=== PATIENT | female | born 1950 | race Caucasian/White ===

== ENCOUNTER → 2018-05-25 10:45 | Outpatient (CLI) | payer OTHER, SELFPAY ==
--- NOTE | 2018-05-25 | DI.MG.S_ITS ---
BILATERAL DIGITAL SCREENING MAMMOGRAM 3D/2D WITH CAD: 05/25/2018 CLINICAL: Routine screening. Family history of breast cancer. Comparison is made to exams dated: 03/11/2017 mammogram, 02/25/2017 mammogram, and 02/16/2017 mammogram - [facility]. The tissue of both breasts is heterogeneously dense. This may lower the sensitivity of mammography. Current study was also evaluated with a Computer Aided Detection (CAD) system. No significant masses, calcifications, or other findings are seen in either breast. There has been no significant interval change. IMPRESSION: NEGATIVE There is no mammographic evidence of malignancy. A 1 year screening mammogram is recommended. This exam was interpreted at Station ID: [id number]. NOTE: For mammograms, a report in lay terms will be sent to the patient. Approximately 15% of breast malignancies will not be visualized mammographically. In the management of a palpable breast mass, a negative mammogram must not discourage biopsy of a clinically suspicious lesion. Electronically Signed By: Devon ponce/froilan:05/25/2018 19:54:26 letter sent: Normal Exam ACR BI-RADS Category 1: Negative 3341F
== END ==
PROVIDERS: PCP Nurse Practitioner Family; Visit Provider Nurse Practitioner Family
DX: Z12.31 Encounter for screening mammogram for malignant neoplasm of breast (principal); Z80.3 Family history of malignant neoplasm of breast
CPT/HCPCS: 77063; 77067

== ENCOUNTER → 2019-10-05 14:03 | Outpatient (CLI) | payer MEDICARE, OTHER, SELFPAY ==
--- NOTE | 2019-10-05 | DI.MG.S_ITS ---
BILATERAL DIGITAL SCREENING MAMMOGRAM 3D/2D WITH CAD: 10/05/2019 CLINICAL: Routine screening. Family history of breast cancer. Comparison is made to exams dated: 05/25/2018 mammogram, 03/11/2017 mammogram, 02/25/2017 mammogram, 02/16/2017 mammogram, and 01/27/2016 mammogram - [facility]. The tissue of both breasts is heterogeneously dense. This may lower the sensitivity of mammography. Current study was also evaluated with a Computer Aided Detection (CAD) system. No significant masses, calcifications, or other findings are seen in either breast. There has been no significant interval change. IMPRESSION: NEGATIVE There is no mammographic evidence of malignancy. A 1 year screening mammogram is recommended. This exam was interpreted at Station ID: [id number]. NOTE: For mammograms, a report in lay terms will be sent to the patient. Approximately 15% of breast malignancies will not be visualized mammographically. In the management of a palpable breast mass, a negative mammogram must not discourage biopsy of a clinically suspicious lesion. Electronically Signed By: Selam leiva/froilan:10/06/2019 12:46:16 letter sent: Normal Exam ACR BI-RADS Category 1: Negative 3341F
== END ==
PROVIDERS: PCP Nurse Practitioner Family; Visit Provider Nurse Practitioner Family
DX: Z12.31 Encounter for screening mammogram for malignant neoplasm of breast (principal); Z80.3 Family history of malignant neoplasm of breast; M85.852 Other specified disorders of bone density and structure, left thigh; Z78.0 Asymptomatic menopausal state; E07.9 Disorder of thyroid, unspecified; Z82.62 Family history of osteoporosis
CPT/HCPCS: 77063; 77067; 77080

== ENCOUNTER → 2020-03-25 07:32 | Outpatient (CLI) | payer MEDICARE, OTHER, SELFPAY ==
[2020-03-25 08:22] LABS: Alanine Aminotransferase 28 IU/L (<35); Albumin 4.3 g/dL (3.5-5.0); Albumin Globulin Ratio 1.6 (1.0-2.8); Alkaline Phosphatase 57 U/L (38-126); Aspartate Aminotransferase 32 IU/L (14-36); BUN Creatinine Ratio 18.9 (6-22); Bilirubin Total 0.7 mg/dL (0.2-1.3); Blood Urea Nitrogen 20 mg/dL (7-17); Calcium 9.3 mg/dL (8.4-10.2); Carbon Dioxide 26 mmol/L (22-32); Chloride 107 mmol/L (98-107); Cholesterol 199 mg/dL (140-199); Estimated Glomerular Filt Rate 51.7 mL/min (>60); Globulin 2.7 g/dL (1.7-4.1); Glucose 103 mg/dL (80-110); HDL Cholesterol 81 mg/dL (40-60); HEMOLYSIS < 15 (0-50); LDL Cholesterol Calculated 92 mg/dL (<100); Potassium 4.3 mmol/L (3.4-5.1); Sodium 138 mmol/L (137-145); Triglycerides 129 mg/dL (35-150)
[2020-03-25 08:37] LABS: Vitamin D 25 Hydroxy (D3) 23.2 ng/mL (30.0-100.0)
== END ==
PROVIDERS: PCP Nurse Practitioner Family; Referring Provider Nurse Practitioner Family; Visit Provider Nurse Practitioner Family
DX: E03.9 Hypothyroidism, unspecified (principal); E55.9 Vitamin D deficiency, unspecified; N28.9 Disorder of kidney and ureter, unspecified; E78.5 Hyperlipidemia, unspecified
CPT/HCPCS: 36415; 80053; 80061; 82306; 84443

== ENCOUNTER → 2020-07-16 07:06 | Outpatient (CLI) | payer MEDICARE, OTHER, SELFPAY ==
[2020-07-16 08:28] LABS: Add Manual Diff / Slide Review NO; Basophils Absolute Auto 0 /uL (0-100); Basophils Percent Auto 0.7 % (0-2); Eosinophils Absolute Auto 300 /uL (0-450); Eosinophils Percent Auto 4.9 % (2-4); Lymphocytes Absolute Auto 1600 /uL (1100-4500); Lymphocytes Percent Auto 30.3 % (25-40); Mean Corpuscular HGB Conc 32.7 % (30-36); Mean Corpuscular Hemoglobin 31.6 PG (26-34); Mean Corpuscular Volume 96.8 fL (80-100); Monocytes Absolute Auto 600 /uL (0-900); Monocytes Percent Auto 11.8 % (3-14); Neutrophils Absolute Auto 2700 /uL (1500-7000); Neutrophils Percent Auto 52.3 % (50-75); Platelet Count 250 X10^3/uL (150-400); Red Blood Cell Count 4.75 X10^6/uL (4.0-5.2); Red Cell Distribution Width 12.8 % (11.6-14.8); White Blood Cell Count 5.2 X10^3/uL (4.5-11.0)
[2020-07-16 08:56] LABS: BUN Creatinine Ratio 21.2 (6-22); Blood Urea Nitrogen 24 mg/dL (7-17); Calcium 9.3 mg/dL (8.4-10.2); Carbon Dioxide 27 mmol/L (22-32); Chloride 107 mmol/L (98-107); Estimated Glomerular Filt Rate 47.9 mL/min (>60); Glucose 93 mg/dL (80-110); HEMOLYSIS < 15 (0-50); Potassium 4.7 mmol/L (3.4-5.1); Sodium 141 mmol/L (137-145)
[2020-07-16 09:15] LABS: TSH w/ Reflex to FT4 1.49 uIU/mL (0.47-4.68)
[2020-07-16 09:31] LABS: Appearance Urine UA SL CLOUDY; Bilirubin Urine UA NEGATIVE (NEGATIVE); Color Urine UA YELLOW; Glucose Urine UA NEGATIVE (Negative); Ketones Urine UA NEGATIVE (NEGATIVE); Leukocyte Esterase Urine UA TRACE (NEGATIVE); Nitrite Urine UA POSITIVE (Negative); Occult Blood Urine UA 3+ (Negative); Protein Urine UA NEGATIVE (Negative); Specific Gravity Urine UA 1.025 (1.000-1.035); Urobilinogen Urine UA 0.2 E.U./dL (0.2)
[2020-07-16 09:36] LABS: Bacteria Urine Many (>30); Culture Indicated Urine Cult Not Indicated; RBC Urine 10-30/HPF (0-5/HPF); Squamous Epithelial Cell Urine 10-30 /HPF (0-5/HPF); WBC Urine 5-10/HPF (0-5/HPF)
[2020-07-16 10:44] LABS: Creatinine Urine Random 227.5 mg/dL
[2020-07-16 10:50] LABS: Microalbumin Urine Random < 0.6 mg/dL (0-1.6)
== END ==
PROVIDERS: PCP Registered Nurse Diabetes Educator; Referring Provider Registered Nurse Diabetes Educator; Visit Provider Registered Nurse Diabetes Educator
DX: E03.9 Hypothyroidism, unspecified (principal); N28.9 Disorder of kidney and ureter, unspecified
CPT/HCPCS: 36415; 80048; 81001; 82043; 82570; 84443; 85025

== ENCOUNTER → 2020-07-17 07:28 | Outpatient (CLI) | payer MEDICARE, OTHER, SELFPAY ==
[2020-07-17 09:46] LABS: Appearance Urine UA SL CLOUDY; Color Urine UA Yellow; Glucose Urine UA NEGATIVE (Negative); Ketones Urine UA NEGATIVE (NEGATIVE); Protein Urine UA Negative (Negative); Specific Gravity Urine UA 1.025 (1.000-1.035)
[2020-07-17 09:47] LABS: Bilirubin Urine UA Negative (NEGATIVE); Leukocyte Esterase Urine UA NEGATIVE (NEGATIVE); Nitrite Urine UA POSITIVE (Negative); Occult Blood Urine UA 2+ (Negative); Urobilinogen Urine UA 0.2 E.U./dL (0.2)
[2020-07-17 09:49] LABS: Bacteria Urine Many (>30); Culture Indicated Urine Specimen Cultured; RBC Urine 1-5/HPF (0-5/HPF); Squamous Epithelial Cell Urine 1-5 /HPF (0-5/HPF); WBC Urine 1-5/HPF (0-5/HPF)
== END ==
PROVIDERS: PCP Registered Nurse Diabetes Educator; Referring Provider Registered Nurse Diabetes Educator; Visit Provider Registered Nurse Diabetes Educator
DX: R82.998 Other abnormal findings in urine (principal)
CPT/HCPCS: 81001; 87077; 87086; 87186

== ENCOUNTER → 2020-08-01 07:05 | Outpatient (CLI) | payer MEDICARE, OTHER, SELFPAY ==
[2020-08-01 07:48] LABS: Bacteria Urine None Seen; RBC Urine None Seen (0-5/HPF)
[2020-08-01 08:27] LABS: Appearance Urine UA CLEAR; Bilirubin Urine UA NEGATIVE (NEGATIVE); Color Urine UA YELLOW; Glucose Urine UA TRACE g/dL (Negative); Ketones Urine UA NEGATIVE (NEGATIVE); Leukocyte Esterase Urine UA TRACE (NEGATIVE); Nitrite Urine UA NEGATIVE (Negative); Occult Blood Urine UA TRACE-LYSED (Negative); Protein Urine UA NEGATIVE (Negative); Specific Gravity Urine UA 1.025 (1.000-1.035); Urobilinogen Urine UA 0.2 E.U./dL (0.2)
[2020-08-01 08:38] LABS: Amorphous Sediment Urine 2+; Culture Indicated Urine Cult Not Indicated; Squamous Epithelial Cell Urine 5-10 /HPF (0-5/HPF); WBC Urine 5-10/HPF (0-5/HPF)
== END ==
PROVIDERS: PCP Registered Nurse Diabetes Educator; Referring Provider Registered Nurse Diabetes Educator; Visit Provider Registered Nurse Diabetes Educator
DX: N39.0 Urinary tract infection, site not specified (principal)
CPT/HCPCS: 81001

== ENCOUNTER → 2020-08-06 07:50 | Outpatient (CLI) | payer MEDICARE, OTHER, SELFPAY ==
[2020-08-06 07:56] LABS: Bacteria Urine None Seen; WBC Urine None Seen (0-5/HPF)
[2020-08-06 13:27] LABS: Appearance Urine UA CLEAR; Bilirubin Urine UA NEGATIVE (NEGATIVE); Color Urine UA YELLOW; Glucose Urine UA NEGATIVE (Negative); Ketones Urine UA NEGATIVE (NEGATIVE); Leukocyte Esterase Urine UA NEGATIVE (NEGATIVE); Nitrite Urine UA NEGATIVE (Negative); Occult Blood Urine UA 1+ (Negative); Protein Urine UA NEGATIVE (Negative); Urobilinogen Urine UA 0.2 E.U./dL (0.2)
[2020-08-06 13:40] LABS: pH Urine UA 5.5 (4.5-8.0)
[2020-08-06 13:45] LABS: Culture Indicated Urine Cult Not Indicated; RBC Urine 0-1/HPF (0-5/HPF)
== END ==
PROVIDERS: PCP Registered Nurse Diabetes Educator; Referring Provider Family Medicine; Visit Provider Family Medicine
DX: N39.0 Urinary tract infection, site not specified (principal)
CPT/HCPCS: 81001

== ENCOUNTER → 2020-10-09 09:31 | Outpatient (CLI) | payer MEDICARE, OTHER, SELFPAY ==
[2020-10-09 10:15] LABS: Appearance Urine UA CLEAR; Bilirubin Urine UA NEGATIVE (NEGATIVE); Color Urine UA YELLOW; Glucose Urine UA NEGATIVE (Negative); Ketones Urine UA NEGATIVE (NEGATIVE); Leukocyte Esterase Urine UA NEGATIVE (NEGATIVE); Nitrite Urine UA NEGATIVE (Negative); Occult Blood Urine UA 2+ (Negative); Protein Urine UA NEGATIVE (Negative); Urobilinogen Urine UA 0.2 E.U./dL (0.2)
[2020-10-09 10:27] LABS: Bacteria Urine Few (2-10); Culture Indicated Urine Cult Not Indicated; Mucus Urine 1+ (Negative); RBC Urine 0-1/HPF (0-5/HPF); Squamous Epithelial Cell Urine 1-5 /HPF (0-5/HPF); WBC Urine 0-1/HPF (0-5/HPF)
[2020-10-09 11:30] LABS: BUN Creatinine Ratio 20.9 (6-22); Blood Urea Nitrogen 24 mg/dL (7-17); Calcium 9.5 mg/dL (8.4-10.2); Carbon Dioxide 29 mmol/L (22-32); Chloride 104 mmol/L (98-107); Estimated Glomerular Filt Rate 46.9 mL/min (>60); Glucose 102 mg/dL (80-110); HEMOLYSIS < 15 (0-50); Potassium 4.8 mmol/L (3.4-5.1); Sodium 139 mmol/L (137-145)
== END ==
PROVIDERS: PCP Registered Nurse Diabetes Educator; Referring Provider Registered Nurse Diabetes Educator; Visit Provider Registered Nurse Diabetes Educator
DX: N18.30 Chronic kidney disease, stage 3 unspecified (principal); R31.29 Other microscopic hematuria
CPT/HCPCS: 36415; 80048; 81001

== ENCOUNTER → 2020-10-21 07:44 | Outpatient (CLI) | payer MEDICARE, OTHER, SELFPAY ==
--- NOTE | 2020-10-21 07:45 | DI.US.S_ITS ---
PROCEDURE: US RENAL COMPLETE INDICATIONS: CHRONIC KIDNEY DISEASE 3 TECHNIQUE: Real-time scanning was performed of the kidneys and bladder, with image documentation. COMPARISON: None. FINDINGS: Kidneys: Kidneys are normal in size. Right kidney measures 9.1 cm long; left kidney measures 8.7 cm long. Right renal cortical thickness is 1.2 cm; left renal cortical thickness is 1.2 cm. Renal cortical echotexture is normal. No nephrolithiasis. No suspicious solid mass lesions. At the superior pole of the left kidney, there is a 9 mm simple appearing cyst seen. There is a prominent left renal pelvis. No ryan hydronephrosis is seen on either side Bladder: Pre-void bladder volume is 177 mL. Post-void residual is 4 mL. Pre-void images demonstrate no intraluminal masses or stones. On pre-void images, both ureteral jets are noted with color Doppler interrogation. (Of note, ureteral jets may not be detectable in up to 25% of cases due to insufficient differences in specific gravity between ureteral and bladder urine). Miscellaneous: No free pelvic fluid. IMPRESSION: There is a prominent left renal pelvis, without ryan hydronephrosis. Trace postvoid residual, 4 cc. 9 mm left kidney simple cyst incidentally noted superiorly. Dictated by: Adeel Fox M.D. on 10/21/2020 at 8:49 Approved by: Adeel Fox M.D. on 10/21/2020 at 8:52
== END ==
PROVIDERS: PCP Registered Nurse Diabetes Educator; Referring Provider Registered Nurse Diabetes Educator; Visit Provider Registered Nurse Diabetes Educator
DX: N18.30 Chronic kidney disease, stage 3 unspecified (principal); N28.1 Cyst of kidney, acquired
CPT/HCPCS: 76770

== ENCOUNTER → 2020-11-08 08:49 | Outpatient (CLI) | payer MEDICARE, OTHER, SELFPAY ==
[2020-11-08] MEDS: COVID-19 VACC #1, MRNA(MOD) 100 MCG/0.5 ML VIAL IM (08:56)
== END ==
PROVIDERS: PCP Registered Nurse Diabetes Educator; Visit Provider Internal Medicine
DX: Z23 Encounter for immunization (principal)
CPT/HCPCS: 0011A; 91301

== ENCOUNTER → 2020-12-05 10:14 | Outpatient (CLI) | payer MEDICARE, OTHER, SELFPAY ==
[2020-12-05] MEDS: COVID-19 VACC #2, MRNA(MOD) 100 MCG/0.5 ML VIAL IM (10:24)
== END ==
PROVIDERS: PCP Registered Nurse Diabetes Educator; Visit Provider Internal Medicine
DX: Z23 Encounter for immunization (principal)
CPT/HCPCS: 0012A; 91301

== ENCOUNTER → 2021-06-13 14:13 | Outpatient (CLI) | payer MEDICARE, OTHER, SELFPAY | PROVIDERS: PCP Registered Nurse Diabetes Educator; Referring Provider Nurse Practitioner; Visit Provider Nurse Practitioner | DX: N39.0 Urinary tract infection, site not specified (principal) | CPT/HCPCS: 87077; 87086; 87186 ==

== ENCOUNTER → 2021-12-16 07:01 | Outpatient (CLI) | payer MEDICARE, OTHER, SELFPAY ==
[2021-12-16 08:45] LABS: Hematocrit 44.1 % (36-46); Hemoglobin 14.9 g/dL (12.0-16.0); Mean Corpuscular HGB Conc 33.7 % (30-36); Mean Corpuscular Volume 95.1 fL (80-100); Platelet Count 219 X10^3/uL (150-400); Red Blood Cell Count 4.64 X10^6/uL (4.0-5.2); Red Cell Distribution Width 13.1 % (11.6-14.8); White Blood Cell Count 4.7 X10^3/uL (4.5-11.0)
[2021-12-16 09:09] LABS: Creatinine Urine Random 178.8 mg/dL
[2021-12-16 09:14] LABS: Alanine Aminotransferase 28 IU/L (<35); Albumin 4.8 g/dL (3.5-5.0); Albumin Globulin Ratio 1.7 (1.0-2.8); Alkaline Phosphatase 58 U/L (38-126); Aspartate Aminotransferase 29 IU/L (14-36); BUN Creatinine Ratio 21.2 (6-22); Bilirubin Total 0.8 mg/dL (0.2-1.3); Blood Urea Nitrogen 22 mg/dL (7-17); Calcium 9.3 mg/dL (8.4-10.2); Carbon Dioxide 25 mmol/L (22-32); Chloride 108 mmol/L (98-107); Cholesterol 211 mg/dL (140-199); Estimated Glomerular Filt Rate 52.5 mL/min (>60); Globulin 2.8 g/dL (1.7-4.1); Glucose 91 mg/dL (80-110); HDL Cholesterol 91 mg/dL (40-60); HEMOLYSIS < 15 (0-50); LDL Cholesterol Calculated 101 mg/dL (<100); Sodium 142 mmol/L (137-145); Total Protein 7.6 g/dL (6.3-8.2); Triglycerides 97 mg/dL (35-150)
[2021-12-16 09:15] LABS: Microalbumi Creatinin Ratio Ur 3.9 ug/mg CR (<30); Microalbumin Urine Random 0.7 mg/dL (0-1.6)
[2021-12-16 09:44] LABS: TSH w/ Reflex to FT4 2.71 uIU/mL (0.47-4.68)
== END ==
PROVIDERS: PCP Registered Nurse Diabetes Educator; Referring Provider Registered Nurse Diabetes Educator; Visit Provider Registered Nurse Diabetes Educator
DX: E03.9 Hypothyroidism, unspecified (principal); E78.5 Hyperlipidemia, unspecified; N18.31 Chronic kidney disease, stage 3a; Z51.81 Encounter for therapeutic drug level monitoring
CPT/HCPCS: 36415; 80053; 80061; 82043; 82570; 84443; 85027

== ENCOUNTER → 2022-01-20 12:43 | Outpatient (CLI) | payer MEDICARE, OTHER, SELFPAY | PROVIDERS: PCP Registered Nurse Diabetes Educator; Referring Provider Registered Nurse Diabetes Educator; Visit Provider Registered Nurse Diabetes Educator | DX: Z13.820 Encounter for screening for osteoporosis (principal); M85.852 Other specified disorders of bone density and structure, left thigh; Z78.0 Asymptomatic menopausal state | CPT/HCPCS: 77080 ==

== ENCOUNTER → 2022-06-18 15:29 | Outpatient (CLI) | payer MEDICARE, OTHER, SELFPAY ==
[2022-06-18 15:49] LABS: Appearance Urine UA CLEAR; Bilirubin Urine UA NEGATIVE (NEGATIVE); Color Urine UA YELLOW; Glucose Urine UA NEGATIVE (Negative); Ketones Urine UA NEGATIVE (NEGATIVE); Leukocyte Esterase Urine UA NEGATIVE (NEGATIVE); Nitrite Urine UA NEGATIVE (Negative); Occult Blood Urine UA 1+ (Negative); Protein Urine UA NEGATIVE (Negative); Specific Gravity Urine UA 1.015 (1.000-1.035); Urobilinogen Urine UA 0.2 E.U./dL (0.2)
[2022-06-18 15:55] LABS: Bacteria Urine None Seen; RBC Urine 1-5/HPF (0-5/HPF); Squamous Epithelial Cell Urine 1-5 /HPF (0-5/HPF); WBC Urine 0-1/HPF (0-5/HPF); pH Urine UA 6.5 (4.5-8.0)
[2022-06-18 15:56] LABS: Culture Indicated Urine Cult Not Indicated
== END ==
PROVIDERS: Family Medicine; PCP Registered Nurse Diabetes Educator; Referring Provider Registered Nurse Diabetes Educator; Visit Provider Registered Nurse Diabetes Educator
DX: R39.9 Unspecified symptoms and signs involving the genitourinary system (principal)
CPT/HCPCS: 81001

== ENCOUNTER → 2022-08-24 08:36 | Outpatient (CLI) | payer MEDICARE, OTHER, SELFPAY ==
--- NOTE | 2022-08-24 | DI.MG.S_ITS ---
BILATERAL DIGITAL SCREENING MAMMOGRAM 3D/2D WITH CAD: 08/24/2022 CLINICAL: Routine screening. Family history of breast cancer. Comparison is made to exams dated: 10/05/2019 mammogram, 05/25/2018 mammogram, and 02/16/2017 mammogram - [facility]. Both breasts are heterogeneously dense, which may obscure small masses (category c / 51-75% glandular tissue). Current study was also evaluated with a Computer Aided Detection (CAD) system. There is a biopsy clip in the right breast. No significant masses, calcifications, or other findings are seen in either breast. There has been no significant interval change. IMPRESSION: NEGATIVE There is no mammographic evidence of malignancy. A 1 year screening mammogram is recommended. Based on the Tyrer Cuzick model (a risk assessment model) the patient's lifetime risk is 10.3% and her 10 year risk is 6.6%. According to the ACR, ACS, and NCCN guidelines, an annual breast MRI exam along with mammogram is recommended if the patient's lifetime risk is 20% or greater. This exam was interpreted at Station ID: [id number]. NOTE: For mammograms, a report in lay terms will be sent to the patient. Approximately 15% of breast malignancies will not be visualized mammographically. In the management of a palpable breast mass, a negative mammogram must not discourage biopsy of a clinically suspicious lesion. Electronically Signed By: Shan carrizales/froilan:08/24/2022 12:05:45 letter sent: Normal Exam ACR BI-RADS Category 1: Negative 3341F
== END ==
PROVIDERS: PCP Registered Nurse Diabetes Educator; Referring Provider Registered Nurse Diabetes Educator; Visit Provider Registered Nurse Diabetes Educator
DX: Z12.31 Encounter for screening mammogram for malignant neoplasm of breast (principal); Z80.3 Family history of malignant neoplasm of breast
CPT/HCPCS: 77063; 77067

== ENCOUNTER → 2022-12-17 06:55 | Outpatient (CLI) | payer MEDICARE, OTHER, SELFPAY ==
[2022-12-17 07:41] LABS: Hematocrit 44.4 % (36-46); Hemoglobin 14.8 g/dL (12.0-16.0); Mean Corpuscular HGB Conc 33.4 % (30-36); Mean Corpuscular Volume 95.7 fL (80-100); Platelet Count 223 X10^3/uL (150-400); Red Blood Cell Count 4.64 X10^6/uL (4.0-5.2); Red Cell Distribution Width 13.1 % (11.6-14.8)
[2022-12-17 07:58] LABS: Alanine Aminotransferase 29 IU/L (<35); Albumin 4.4 g/dL (3.5-5.0); Albumin Globulin Ratio 1.6 (1.0-2.8); Alkaline Phosphatase 69 U/L (38-126); Aspartate Aminotransferase 28 IU/L (14-36); BUN Creatinine Ratio 22.5 (6-22); Bilirubin Total 0.5 mg/dL (0.2-1.3); Blood Urea Nitrogen 23 mg/dL (7-17); Calcium 9.1 mg/dL (8.4-10.2); Carbon Dioxide 29 mmol/L (22-32); Chloride 107 mmol/L (98-107); Cholesterol 183 mg/dL (140-199); Estimated Glomerular Filt Rate 59 mL/min (>60); Globulin 2.8 g/dL (1.7-4.1); Glucose 93 mg/dL (80-110); HDL Cholesterol 75 mg/dL (40-60); HEMOLYSIS < 15 (0-50); LDL Cholesterol Calculated 92 mg/dL (<100); Potassium 4.3 mmol/L (3.4-5.1); Sodium 141 mmol/L (137-145); Total Protein 7.2 g/dL (6.3-8.2); Triglycerides 78 mg/dL (35-150)
[2022-12-17 08:26] LABS: Creatinine Urine Random 104.4 mg/dL
[2022-12-17 08:27] LABS: TSH w/ Reflex to FT4 1.85 uIU/mL (0.47-4.68)
[2022-12-17 08:31] LABS: Microalbumin Urine Random < 0.6 mg/dL (0-1.6)
== END ==
PROVIDERS: PCP Registered Nurse Diabetes Educator; Referring Provider Registered Nurse Diabetes Educator; Visit Provider Registered Nurse Diabetes Educator
DX: E03.9 Hypothyroidism, unspecified (principal); E78.5 Hyperlipidemia, unspecified; M85.80 Other specified disorders of bone density and structure, unspecified site; N18.31 Chronic kidney disease, stage 3a; Z79.890 Hormone replacement therapy
CPT/HCPCS: 36415; 80053; 80061; 82043; 82570; 84443; 85027

== ENCOUNTER → 2022-12-22 16:18 | Outpatient (CLI) | payer MEDICARE, OTHER, SELFPAY ==
--- NOTE | 2022-12-22 16:20 | DI.RAD.S_ITS ---
PROCEDURE: XR KNEE LT 1TO2V INDICATIONS: knee pain TECHNIQUE: 2views of the knee were acquired. COMPARISON: None. FINDINGS: Bones: No fractures or dislocations. No suspicious bony lesions. Moderate tricompartmental osteoarthritic degenerative changes with osseous hypertrophy and joint space narrowing. Soft tissues: No joint effusion. No suspicious soft tissue calcifications. IMPRESSION: Moderate left knee tricompartmental osteoarthritis. Dictated by: Selene Garcia MD, PhD on 12/22/2022 at 16:48 Approved by: Selene Garcia MD, PhD on 12/22/2022 at 16:49
--- NOTE | 2022-12-22 16:20 | DI.RAD.S_ITS ---
PROCEDURE: XR HIP W PEL IF DONE LT 2V INDICATIONS: left hip to pelvis pain TECHNIQUE: AP pelvis with lateral view(s) of the left hip(s). COMPARISON: None. FINDINGS: Bones: No fractures or dislocations. Pelvic ring appears intact. No suspicious bony lesions. Moderate left hip osteoarthritic degenerative change with osseous hypertrophy and mild joint space narrowing. Soft tissues: The visualized bowel gas pattern is normal. No suspicious soft tissue calcifications. IMPRESSION: Mild left hip osteoarthritis. Dictated by: Selene Garcia MD, PhD on 12/22/2022 at 16:46 Approved by: Selene Garcia MD, PhD on 12/22/2022 at 16:46
--- NOTE | 2022-12-22 16:20 | DI.RAD.S_ITS ---
PROCEDURE: XR LUMBAR SPINE 2-3V INDICATIONS: back pain TECHNIQUE: 3 views of the lumbar spine were acquired. COMPARISON: None. FINDINGS: Bones: 5 aep-die-fowinzk vertebrae are present. There is mild, approximately 7 millimeters of L4-L5 anterolisthesis. No vertebral body compression fractures. No suspicious bony lesions. Mild degenerative disc changes throughout the lumbar spine. Moderate L4-L5 and L5-S1 facet hypertrophy. Mild L2-L3 and L3-L4 facet hypertrophy. Soft tissues: Overlying bowel gas pattern is normal. No suspicious soft tissue calcifications. IMPRESSION: 1. Multilevel degenerative disc disease. 2. Multilevel facet arthropathy. 3. No fracture. No acute osseous lesion. If symptoms and/or clinical suspicion for pathology persists, evaluation with MRI should be considered for further assessment. Dictated by: Selene Garcia MD, PhD on 12/22/2022 at 16:47 Approved by: Selene Garcia MD, PhD on 12/22/2022 at 16:48
== END ==
PROVIDERS: PCP Registered Nurse Diabetes Educator; Referring Provider Registered Nurse Diabetes Educator; Visit Provider Registered Nurse Diabetes Educator
DX: M51.16 Intervertebral disc disorders with radiculopathy, lumbar region (principal); M47.27 Other spondylosis with radiculopathy, lumbosacral region; M16.12 Unilateral primary osteoarthritis, left hip; M17.12 Unilateral primary osteoarthritis, left knee; M47.26 Other spondylosis with radiculopathy, lumbar region; M25.552 Pain in left hip; M89.8X8 Other specified disorders of bone, other site; M25.562 Pain in left knee
CPT/HCPCS: 72100; 73502; 73560

== ENCOUNTER → 2023-10-26 08:15 | Outpatient (CLI) | payer MEDICARE, OTHER, SELFPAY ==
--- NOTE | 2023-10-26 08:17 | DI.MG.S_ITS ---
BILATERAL DIGITAL SCREENING MAMMOGRAM 3D/2D WITH CAD: 10/26/2023 CLINICAL: Routine screening. Family history of breast cancer. Comparison is made to exams dated: 08/24/2022 mammogram, 10/05/2019 mammogram, and 05/25/2018 mammogram - [facility]. Both breasts are heterogeneously dense, which may obscure small masses (category c / 51-75% glandular tissue). Current study was also evaluated with a Computer Aided Detection (CAD) system. There is a biopsy clip in the right breast. No significant masses, calcifications, or other findings are seen in either breast. There has been no significant interval change. IMPRESSION: BENIGN There is no mammographic evidence of malignancy. A 1 year screening mammogram is recommended. Based on the Tyrer Cuzick model (a risk assessment model) the patient's lifetime risk is 9.8% and her 10 year risk is 6.8%. According to the ACR, ACS, and NCCN guidelines, an annual breast MRI exam along with mammogram is recommended if the patient's lifetime risk is 20% or greater. This exam was interpreted at Station ID: [id number]. NOTE: For mammograms, a report in lay terms will be sent to the patient. Approximately 15% of breast malignancies will not be visualized mammographically. In the management of a palpable breast mass, a negative mammogram must not discourage biopsy of a clinically suspicious lesion. Electronically Signed By: Elisa Alan M.D., PH.D tavo/froilan:10/26/2023 10:35:29 letter sent: Normal Exam ACR BI-RADS Category 2: Benign Finding(s) 3342F
== END ==
PROVIDERS: PCP Registered Nurse Diabetes Educator; Referring Provider Registered Nurse Diabetes Educator; Visit Provider Registered Nurse Diabetes Educator
DX: Z12.31 Encounter for screening mammogram for malignant neoplasm of breast (principal); Z80.3 Family history of malignant neoplasm of breast; R92.333 Mammographic heterogeneous density, bilateral breasts
CPT/HCPCS: 77063; 77067

== ENCOUNTER → 2024-01-26 09:37 | Outpatient (CLI) | payer MEDICARE, OTHER, SELFPAY ==
--- NOTE | 2024-01-26 09:38 | DI.RAD.S_ITS ---
PROCEDURE: XR LUMBAR SPINE MIN 4V INDICATIONS: low back pain TECHNIQUE: 5 views of the lumbar spine were acquired, including bilateral oblique views. COMPARISON: [facility], , XR LUMBAR SPINE 2-3V, 12/22/2022, 16:20. FINDINGS: Bones: 5 nonrib-bearing vertebrae are present. Similar appearance of grade 1 anterolisthesis of L4 on L5 of approximately 7 mm. Levoconvex curvature of the lumbar spine with apex at L2. Bzlg-tq-uyuqkkes multilevel degenerative changes of the spine with osteophytosis, disc height loss and facet arthropathy, similar to prior dated December 22, 2022. Mild osseous neural foraminal narrowing at L5-S1. No vertebral body compression fractures. No suspicious bony lesions. Soft tissues: Overlying bowel gas pattern is normal. No suspicious soft tissue calcifications. Oblique images: No pars defects. IMPRESSION: 1. No acute bony abnormality. 2. Nsoa-nr-nczovcli multilevel degenerative changes, similar to prior dated December 22, 2022. Dictated by: Lucien Morris M.D. on 01/26/2024 at 12:21 Approved by: Lucien Morris M.D. on 01/26/2024 at 12:24
== END ==
PROVIDERS: PCP Registered Nurse Diabetes Educator; Referring Provider Registered Nurse Diabetes Educator; Visit Provider Registered Nurse Diabetes Educator
DX: M47.26 Other spondylosis with radiculopathy, lumbar region (principal); M43.16 Spondylolisthesis, lumbar region; M48.07 Spinal stenosis, lumbosacral region
CPT/HCPCS: 72110

== ENCOUNTER → 2024-01-31 09:12 | Outpatient (CLI) | payer MEDICARE, OTHER, SELFPAY ==
--- NOTE | 2024-01-31 09:30 | DI.MRI.S_ITS ---
PROCEDURE: MR LUMBAR SPINE WO CON INDICATIONS: Lumbar radiculopathy, neurogenic claudication TECHNIQUE: Noncontrast sagittal T1 spin echo and T2 fast echo, sagittal STIR, and T2 fast spin echo through the lumbar spine. In cases with scoliosis, additional coronal T2 fast spin echo may be performed. COMPARISON: None. FINDINGS: Image quality: Excellent. Alignment and Curvature: There trace L4-5 anterolisthesis. Bone Marrow: Marrow is of normal overall signal. No acute vertebral body compression fractures. Spinal Cord: Conus medullaris terminates at the L1 level. Visualized cord demonstrates normal signal and size. Paraspinous Soft Tissues: No paravertebral masses. T12-L1: Normal appearance. L1-L2: Normal appearance. L2-L3: Mild disc desiccation and height loss. Broad-based disc bulge. Moderate facet and ligamentum flavum hypertrophy. No canal stenosis. Mild bilateral foraminal stenosis. L3-L4: Mild disc desiccation and height loss. Moderate facet ligamentum flavum hypertrophy. No canal stenosis. No foraminal stenosis. L4-L5: Anterolisthesis. Moderate disc desiccation and height loss. Vacuum disc phenomenon. Severe facet and ligamentum flavum hypertrophy. No canal stenosis. Mild left foraminal narrowing. L5-S1: Moderate facet and ligamentum flavum hypertrophy. No canal stenosis. No foraminal stenosis. IMPRESSION: 1. L4-5 anterolisthesis and degenerative disc disease. No significant canal stenosis or foraminal narrowing of the lumbar spine. Dictated by: Selam Last M.D. on 01/31/2024 at 10:36 Approved by: Selam Last M.D. on 01/31/2024 at 10:41
== END ==
LOC: MRI 09:13
PROVIDERS: PCP Registered Nurse Diabetes Educator; Referring Provider Anesthesiology; Visit Provider Anesthesiology
DX: M51.16 Intervertebral disc disorders with radiculopathy, lumbar region; M47.26 Other spondylosis with radiculopathy, lumbar region; M43.16 Spondylolisthesis, lumbar region; M54.50 Low back pain, unspecified
CPT/HCPCS: 72148

== ENCOUNTER → 2024-02-02 07:14 | Outpatient (CLI) | payer MEDICARE, OTHER, SELFPAY ==
[2024-02-02 07:40] LABS: Hematocrit 43.5 % (36-46); Hemoglobin 14.7 g/dL (12.0-16.0); Mean Corpuscular HGB Conc 33.7 % (30-36); Mean Corpuscular Hemoglobin 32.3 PG (26-34); Mean Corpuscular Volume 95.7 fL (80-100); Platelet Count 256 X10^3/uL (150-400); Red Blood Cell Count 4.54 X10^6/uL (4.0-5.2); Red Cell Distribution Width 13.5 % (11.6-14.8); White Blood Cell Count 5.1 X10^3/uL (4.5-11.0)
[2024-02-02 08:07] LABS: Alanine Aminotransferase 26 IU/L (<35); Albumin 4.4 g/dL (3.5-5.0); Albumin Globulin Ratio 1.8 (1.0-2.8); Alkaline Phosphatase 60 U/L (38-126); Aspartate Aminotransferase 26 IU/L (14-36); Bilirubin Total 0.9 mg/dL (0.2-1.3); Blood Urea Nitrogen 27 mg/dL (7-17); Calcium 9.3 mg/dL (8.4-10.2); Carbon Dioxide 24 mmol/L (22-32); Chloride 111 mmol/L (98-107); Cholesterol 184 mg/dL (140-199); Estimated Glomerular Filt Rate > 60 mL/min (>60); Globulin 2.4 g/dL (1.7-4.1); Glucose 93 mg/dL (80-110); HDL Cholesterol 77 mg/dL (40-60); HEMOLYSIS < 15 (0-50); LDL Cholesterol Calculated 90 mg/dL (<100); Potassium 4.5 mmol/L (3.4-5.1); Sodium 141 mmol/L (137-145); Total Protein 6.8 g/dL (6.3-8.2); Triglycerides 86 mg/dL (35-150)
[2024-02-02 08:29] LABS: TSH w/ Reflex to FT4 1.76 uIU/mL (0.47-4.68)
[2024-02-02 09:13] LABS: Creatinine Urine Random 109.8 mg/dL
[2024-02-02 09:18] LABS: Microalbumin Urine Random < 0.6 mg/dL (0-1.6)
== END ==
PROVIDERS: PCP Registered Nurse Diabetes Educator; Referring Provider Registered Nurse Diabetes Educator; Visit Provider Registered Nurse Diabetes Educator
DX: E78.5 Hyperlipidemia, unspecified (principal); N18.30 Chronic kidney disease, stage 3 unspecified; E03.9 Hypothyroidism, unspecified
CPT/HCPCS: 36415; 80053; 80061; 82043; 82570; 84443; 85027

== ENCOUNTER 2024-03-08 09:52 | Outpatient (CLI) | payer MEDICARE, OTHER, SELFPAY ==
[2024-03-08] VITALS (9 sets, daily range): BP systolic 119–163; BP diastolic 70–88; PULSE 65–89; RESP 10–19; TEMP 37.2; O2SAT 95–99
[2024-03-08] MEDS: MIDAZOLAM 2 MG/2 ML VIAL 1 MG IV (10:28)
[2024-03-08] MEDS: iopamidoL 15 ML VIAL 3 ML INJ (10:30)
[2024-03-08] MEDS: DEXAMETHASONE 10 MG/ML VIAL INJ (10:30)
--- NOTE | 2024-03-08 10:30 | DI.RAD.S_ITS ---
PROCEDURE: PAIN L/S TRANSFORAMINAL INJECT INDICATIONS: Lumbar Radiculopathy COMPARISON: None. FINDINGS: Fluoroscopic spot filming was performed to verify placement of spinal needles at the left L4-L5 level(s), as labeled on the films. Appropriate location(s) of the needle tip(s) was confirmed by injection of iodinated contrast. IMPRESSION: Intraoperative guidance provided. Dictated by: Pee Mitchell M.D. on 03/08/2024 at 16:18 Approved by: Pee Mitchell M.D. on 03/08/2024 at 16:18
--- NOTE | 2024-03-08 11:08 | PC.NURSE ---
Heart Rhythm Changes This RN noted patient Heart Rhythm at start of procedure to be in normal sinus rhythm. Some noted PVCs. Patient rhythm changed during the procedure to a regular wide QRS sequence. Patient without distress or chest pain. Patient's heart rhythm then flipped back into a normal sinus rhythm. This heart rhythm would flip from NSR to this wider QRS complex though out the procedure. Patient remaining without distress through procedure. Dr. Lynch made aware and EKG ordered for post procedure.
--- NOTE | 2024-03-08 11:28 | PM.PROC.IR.1 ---
Date/Time/Diagnoses Date of procedure: 03/08/24 Time of procedure: 10:30 Procedure Notes Physician: Sher Lynch Total Fluoroscopy time (seconds): 33 Total sedation minutes: 12 Procedure in detail & Post-procedure care: Left L4-5 Transforaminal Epidural Steroid Injection Indications: Jonny is presenting for treatment of lumbar radiculopathy with low back and leg pain. Preoperative diagnosis: Lumbar radiculopathy Postoperative diagnosis: Same Focused Examination: Ax3 Mood and affect are normal Vital Signs: VSS ASA: 2 Consent: Following review of allergies and potential side effects/complications, including, but not necessarily limited to, infection, allergic reaction, local tissue breakdown, stroke, temporary or permanent nerve injury, paralysis, and possible , the patient indicated that they understood and agreed to proceed.? An informed consent document was signed by the patient, witnessed by a nurse and placed in the patient's chart.? Additionally, other treatment options including medications and physical therapy were reviewed with the patient. All questions were answered. Site was then marked. Anesthesia: After review of previous anesthetic history and IV conscious sedation, the patient was deemed safe to proceed with today's procedure with IV conscious sedation. IV sedation was accomplished with midazolam 1 mg administered by the RN after order by Dr. Lynch. Sedation was titrated to patient comfort during the course of the procedure. Patient remained responsive to all verbal commands. Position: Prone Monitoring: NIBP, Pulse oximetry, 3 lead EKG Needle used: 22 gauge, 5 inch spinal needle Contrast: Isovue 300M Injectate: 10 mg Dexamethasone mixed with 1% lidocaine 1 ml and normal saline 1 mL Technique: The skin was prepped with chloraprep and draped in a sterile fashion. Time out was performed as per protocol. Oxygen applied via NC. Skin and subcutaneous structures of the needle entry site were infiltrated with 3mL of lidocaine 1%. Under fluoroscopic guidance, using an ipsilateral oblique view,?a 22 gauge 5 inch needle was advanced to the base of the left L4?pedicle.? The needle was advanced to the superio-posterior aspect of the neural foramen under lateral view.? Oblique and AP views were rechecked. No paresthesias noted by the patient during needle placement. In AP view and utilizing real-time digital subtraction fluoroscopy, 2 ml contrast was slowly injected. Epidural spread was observed without evidence for intravascular nor intrathecal uptake. Contrast spread was seen craniocaudally. The above injectate was then administered without paresthesias and the needle was subsequently withdrawn. Band-Aids applied to injection sites. EBL: less than 1 ml Complications: None. Post Procedure: Cardiac rhythm abnormalities noted during the procedure (rhythm strips printed). VSS and pt asymptomatic throughout the injection. EKG obtained in recovery consistent with left bundle branch block. In recovery, patient felt off. VSS, she denied chest pain/shortness of breath. However, decision made to transfer to the emergency department for further evaluation. The patient was provided a Pain Log to continue to record the patient's response to the target-specific procedure prior to the patient's follow-up visit with the referring physician. Patient was stable upon discharge. Detailed post procedure instructions were provided. Patient was asked to call in the event of worsening pain, fever, weakness, numbness or bladder or bowel incontinence.
--- NOTE | 2024-03-08 11:48 | PC.NURSE ---
Patient was noted to have an unspecified arrhythmia during the procedure. A STAT 12 lead ECG was ordered by Dr. Lynch to be completed in the post procedure area. Immediately upon arrival to the post procedure area the patient was asked, by this nurse, if she had any chest pain/discomfort, SOB, or any other symptoms. She stated that she did not at this time. 12 lead ECG obtained and it was noted that she has a LBBB. She was again asked by this nurse if she was having any cardiac symptoms as stated before. She denied them again. the 12 lead ECG was taken to Dr. Lynch and he was also informed that she did not have any discomfort, SOB or other cardiac signs/symptoms at thsi time. Dr. Lynch stated that she was ok to go home , but she should make an appointment with her doctor ROWENA and that if she began having any cardiac signs/symptoms she should go to the ER immediately. Patient notified that she was able to go home at this time and that she should make an appointment ROWENA with her primary care provider and if she begins to have any chest discomfort/pain, SOB or any other symptoms that she thinks could be cardiac related she should go to the ER immediately. Then she stated, well I do have a bit of a flutter in my chest. Dr. Lynch notified he determined that she should go to the ER immediately. This nurse discussed this patient's case and cardiac symptoms with the ER doctor. Patient taken to the ER for admit and her IV was left in place.
== END 2024-03-08 11:21 | disposition other institution (70) ==
PROVIDERS: PCP Family Medicine; Referring Provider Anesthesiology; Visit Provider Anesthesiology
DX: M54.16 Radiculopathy, lumbar region (principal); I49.9 Cardiac arrhythmia, unspecified
CPT/HCPCS: 64483; 93005; 99152; J1100; J2250

== ENCOUNTER 2024-03-08 11:21 | Emergency (ER) | payer MEDICARE, OTHER, SELFPAY ==
[2024-03-08 11:27] VITALS: BP 157/79; PULSE 80; RESP 16; TEMP 36.9; O2SAT 97; BMI 33.0
--- NOTE | 2024-03-08 11:32 | DI.RAD.S_ITS ---
PROCEDURE: XR CHEST 1V INDICATIONS: chest pain TECHNIQUE: One view of the chest was acquired. COMPARISON: None. FINDINGS: Surgical changes and devices: None. Lungs and pleura: Lungs are clear. No pleural effusions or pneumothorax. Mediastinum: Mediastinal contours appear normal. Heart size is normal. Bones and chest wall: No suspicious bony lesions. Overlying soft tissues appear unremarkable. IMPRESSION: No acute cardiopulmonary abnormality is seen. Dictated by: Girma Davis M.D. on 03/08/2024 at 12:33 Approved by: Girma Davis M.D. on 03/08/2024 at 12:34
[2024-03-08 11:56] LABS: Add Manual Diff / Slide Review NO; Basophils Absolute Auto 100 /uL (0-100); Basophils Percent Auto 0.8 % (0-2); Eosinophils Absolute Auto 200 /uL (0-450); Hematocrit 41.4 % (36-46); Hemoglobin 13.8 g/dL (12.0-16.0); Lymphocytes Absolute Auto 1100 /uL (1100-4500); Lymphocytes Percent Auto 17.1 % (25-40); Mean Corpuscular HGB Conc 33.4 % (30-36); Mean Corpuscular Hemoglobin 32.3 PG (26-34); Mean Corpuscular Volume 96.7 fL (80-100); Monocytes Absolute Auto 400 /uL (0-900); Monocytes Percent Auto 6.8 % (3-14); Neutrophils Absolute Auto 4400 /uL (1500-7000); Neutrophils Percent Auto 72.3 % (50-75); Platelet Count 205 X10^3/uL (150-400); Red Blood Cell Count 4.28 X10^6/uL (4.0-5.2); Red Cell Distribution Width 12.6 % (11.6-14.8); White Blood Cell Count 6.1 X10^3/uL (4.5-11.0)
[2024-03-08 11:58] LABS: Prothrombin Time 11.5 SECONDS (9.4-12.5)
[2024-03-08 12:00] LABS: PTT Partial Thromboplastin Tim 33 SECONDS (25.1-36.5)
[2024-03-08 12:04] LABS: Alanine Aminotransferase 21 IU/L (<35); Albumin 4.1 g/dL (3.5-5.0); Albumin Globulin Ratio 1.8 (1.0-2.8); Alkaline Phosphatase 55 U/L (38-126); Aspartate Aminotransferase 27 IU/L (14-36); Bilirubin Total 0.6 mg/dL (0.2-1.3); Blood Urea Nitrogen 20 mg/dL (7-17); Calcium 8.4 mg/dL (8.4-10.2); Carbon Dioxide 25 mmol/L (22-32); Chloride 110 mmol/L (98-107); Creatine Kinase 82 U/L (30-135); Estimated Glomerular Filt Rate > 60 mL/min (>60); Globulin 2.3 g/dL (1.7-4.1); Glucose 143 mg/dL (80-110); HEMOLYSIS 18 (0-50); Lipase 79 U/L (23-300); Magnesium 2.3 mg/dL (1.6-2.3); Potassium 4.4 mmol/L (3.4-5.1); Sodium 137 mmol/L (137-145); Total Protein 6.4 g/dL (6.3-8.2)
[2024-03-08 12:15] LABS: Troponin I < 0.012 ng/mL (0.01-0.034)
[2024-03-08 14:48] LABS: Troponin I < 0.012 ng/mL (0.01-0.034)
--- NOTE | 2024-03-08 15:46 | ED.ARRPALP ---
HPI - Arrhythmia/Palpitations General Chief Complaint: Arrhythmia/Palpitations Stated Complaint: Heart Issue during procedure Time Seen by Provider: 03/08/24 13:59 Source: patient, RN notes reviewed, old records reviewed and other Mode of arrival: Wheelchair Limitations: no limitations History of Present Illness HPI narrative: 3-year-old female with history of chronic back pain, dyslipidemia, CKD 3, cardiac arrhythmia who presents with complaint of potential arrhythmia during a spinal injection. Patient was being seen with Dr. Loja, they noted a change in rhythm during patient's procedure. Patient did not have any chest pain or shortness of breath she states she felt fine during the procedure. She notes she has had episodes that she describes as brief for 15 seconds where her heart will feel like it is pounding out of her chest. Sometimes at nighttime but can be during the daytime as well. Does not seem to be correlated with exertion in any way. She states she will feel short of breath when these happen. She states it feels like her heart was going to bound out of her chest. Patient states she has never had any syncopal episodes. She denies any nausea or vomiting no GI symptoms no swelling of extremities. She has had the Holter monitor or ZIO patch many years ago and was told she had an arrhythmia and that they would watch it but she does not know what it was did not have any additional workup. She was found to have a left bundle-branch block on EKG, she states she has not sure if she has ever had an EKG but has not ever been told she has had a left bundle-branch. Patient states she does take medication including gabapentin, statin, they monitor her renal disease but states it has been otherwise appropriate, she takes medication for hypothyroidism. Has prior carpal tunnel surgery. Denies any drug allergies. No regular tobacco, alcohol or recreational drugs. Does have a family history of cardiac issues. Both parents and her brother of cardiac issues around the age of 68. She states unclear if it was coronary artery disease versus other. She has been following with Dr. Castaneda, she has seen them about her sensation of palpitations. They started her Pepcid they are having her monitor her heart with her watch. Related Data Home Medications Medication Instructions Recorded Confirmed acetaminophen 650 mg 650 mg PO Q12H 06/11/20 03/02/24 tablet,extended release (Tylenol 8 Hour) Previous Rx's Medication Instructions Recorded atorvastatin 10 mg tablet 10 mg PO DAILY #90 tabs 02/09/24 estradiol-norethindrone acet 0.5 1 tab PO DAILY #84 tabs 02/09/24 mg-0.1 mg tablet gabapentin 100 mg capsule 300 mg (3 x 100 mg) PO BEDTIME 02/09/24 sciatica #270 caps levothyroxine 75 mcg tablet 75 mcg PO DAILY #90 tabs 02/09/24 trazodone 50 mg tablet 100 mg (2 x 50 mg) PO BEDTIME PRN 02/09/24 sleep #180 tabs Allergies Allergy/AdvReac Type Severity Reaction Status Date / Time No Known Drug Allergies Allergy Verified 03/08/24 11:46 Review of Systems Review of Systems ROS Unobtainable: All systems reviewed & are unremarkable except as noted in HPI and below Patient History Medical History Family history of coronary artery disease Lumbar radiculopathy Greater trochanteric bursitis of left hip Neurogenic claudication Lumbar spondylosis Low back pain On hormone replacement therapy Insomnia Bilateral knee pain Neck pain Lumbar radiculopathy, chronic Spondylosis Dyslipidemia CKD (chronic kidney disease) stage 3, GFR 30-59 ml/min UTI (urinary tract infection) Wears glasses Rosacea Eczema (~2019) Cardiac arrhythmia Surgical History Anesthesia History of knee surgery History of carpal tunnel surgery History of cataract removal with insertion of prosthetic lens (~2019) Family History Father History of heart disease Stroke Mother Breast cancer Diabetes mellitus History of heart disease Stroke Brother History of heart disease Stroke Grandmother History of heart disease Family/Other Cerebral hemorrhage Family/Other Cancer Family/Other History of diabetes as a child Family/Other Cancer Family/Other History of heart disease Diabetes mellitus Family/Other History of heart disease Diabetes mellitus Family/Other History of heart disease Cancer Family/Other History of heart disease Social History Smoking Status: Never smoker Smoking Status: Never smoker alcohol intake frequency: holidays/special occasions only Substance Use Type: does not use Exam Narrative Exam Narrative: GENERAL: Alert and oriented x three, well-appearing female in mild distress. HEENT: Head normocephalic, atraumatic, EOMI, pupils reactive, face symmetric, moist mucous membranes NECK: Supple, full range of motion CARDIOVASCULAR: Regular rate and rhythm without murmurs, rubs or gallops. No JVD. No edema bilateral lower extremities. RESPIRATORY: Breath sounds equal bilaterally, no wheezes rales or rhonchi. ABDOMEN: Soft, nontender. Normoactive bowel sounds all 4 quadrants. No guarding or rebound, rigidity, no mass : No CVA tenderness EXTREMITIES: Normal range of motion, no clubbing or edema. Neurovascularly intact NEUROLOGICAL: Cranial nerves II through XII grossly intact. Moving all extremities SKIN: Warm, dry, no petechiae, no rashes or lesions. Initial Vital Signs Initial Vital Signs: Vital Signs Temperature 98.5 F 03/08/24 11:27 Pulse Rate 80 03/08/24 11:27 Respiratory Rate 16 03/08/24 11:27 Blood Pressure 157/79 H 03/08/24 11:27 Pulse Oximetry 97 03/08/24 11:27 Oxygen Delivery Method Room Air 03/08/24 11:27 Course Orders Ordered: ED Orders 03/08/24 11:32 XR chest 1V Stat EKG-12 Lead Stat 03/08/24 11:41 Complete Blood Count AUTO DIFF Stat Comprehensive Metabolic Panel Stat Lipase Stat Magnesium Stat PTT Partial Thromboplastin Noam Stat Prothrombin Time INR Stat Troponin & CK Cardiac Panel Stat 03/08/24 14:18 Trop I [Troponin I] Stat Discontinued Medications Aspirin (Aspirin 81 Mg Chew Tab) 324 mg PO NOW ONE Stop: 03/08/24 11:33 Last Admin: 03/08/24 16:03 Dose: Not Given Vital Signs Vital signs: Vital Signs - 8 hr 03/08/24 11:27 Temperature 98.5 F Pulse Rate 80 Respiratory Rate 16 Blood Pressure 157/79 H Pulse Oximetry 97 Oxygen Delivery Method Room Air MDM - Arrhythmia/Palpitations Lab Data 03/08/24 11:41 03/08/24 11:41 Labs: Lab Results 03/08/24 03/08/24 Range/Units 11:41 14:18 WBC 6.1 (4.5-11.0) X10^3/uL RBC 4.28 (4.0-5.2) X10^6/uL Hgb 13.8 (12.0-16.0) g/dL Hct 41.4 (36-46) % MCV 96.7 (80-100) fL MCH 32.3 (26-34) PG MCHC 33.4 (30-36) % RDW 12.6 (11.6-14.8) % Plt Count 205 (150-400) X10^3/uL Neut % (Auto) 72.3 (50-75) % Lymph % (Auto) 17.1 L (25-40) % [place] % (Auto) 6.8 (3-14) % Eos % (Auto) 3.0 (2-4) % Baso % (Auto) 0.8 (0-2) % Neut # (Auto) 4400 (1552-2653) /uL Lymph # (Auto) 1100 (0964-0148) /uL [place] # (Auto) 400 (0-900) /uL Eos # (Auto) 200 (0-450) /uL Baso # (Auto) 100 (0-100) /uL PT 11.5 (9.4-12.5) SECONDS INR 1.0 (0.9-1.3) APTT 33 (25.1-36.5) SECONDS Sodium 137 (137-145) mmol/L Potassium 4.4 (3.4-5.1) mmol/L Chloride 110 H (98-107) mmol/L Carbon Dioxide 25 (22-32) mmol/L BUN 20 H (7-17) mg/dL Creatinine 0.87 (0.52-1.04) mg/dL Estimated GFR > 60 (>60) mL/min BUN/Creatinine Ratio 23.0 H (6-22) Glucose 143 H (80-110) mg/dL Calcium 8.4 (8.4-10.2) mg/dL Magnesium 2.3 (1.6-2.3) mg/dL Total Bilirubin 0.6 (0.2-1.3) mg/dL AST 27 (14-36) IU/L ALT 21 (<35) IU/L Alkaline Phosphatase 55 (38-126) U/L Total Creatine Kinase 82 (30-135) U/L Troponin I < 0.012 < 0.012 (0.01-0.034) ng/mL Total Protein 6.4 (6.3-8.2) g/dL Albumin 4.1 (3.5-5.0) g/dL Globulin 2.3 (1.7-4.1) g/dL Albumin/Globulin Ratio 1.8 (1.0-2.8) Lipase 79 (23-300) U/L Imaging Data Chest x-ray: Radiologist's Impresson: [address] [address] XRay Report Signed Patient: Jonny Kidd MR#: [id number] : 1950 Acct:[id number] Age/Sex: 73 / F Date of Service: 03/08/24 Loc: ED Accession Number: [id number] Procedure: XR chest 1V Ordering Provider: Tyrel Mederos MD PROCEDURE: XR CHEST 1V INDICATIONS: chest pain TECHNIQUE: One view of the chest was acquired. COMPARISON: None. FINDINGS: Surgical changes and devices: None. Lungs and pleura: Lungs are clear. No pleural effusions or pneumothorax. Mediastinum: Mediastinal contours appear normal. Heart size is normal. Bones and chest wall: No suspicious bony lesions. Overlying soft tissues appear unremarkable. IMPRESSION: No acute cardiopulmonary abnormality is seen. Dictated by: Girma Davis M.D. on 03/08/2024 at 12:33 Approved by: Girma Davis M.D. on 03/08/2024 at 12:34 ECG Data Attestation: I personally reviewed and interpreted this ECG as follows: Interpretation: EKG from Dr. Loja shows sinus rhythm with left bundle rate of 76 MD 158 QRS of 132 QTC 456. All 3 EKGs appears similar today. Patient does not have any priors for comparison. EKG 1. (in ED) Sinus rhythm left bundle-branch rate of 78 MD 164 QRS of [address] No [address] changes. EKG 2. Shows sinus rhythm, left bundle-branch block rate 81, MD 172 QRS of 138 QTC 455, no acute ST changes appreciated. MDM Narrative Medical decision making narrative: 73-year-old female who is having spinal injection for chronic back pain earlier today there was concerned about possible arrhythmia on her rhythm strips, patient's P, QRS and T-wave overall appear similar, possible movement of ST change but only in 1 lead. Patient was asymptomatic during the procedure. She was awake for the procedure. She was found on the left bundle-branch block on EKG. Patient's repeat EKGs all show left bundle-branch block without any dynamic changes. She notes she does intermittently have palpitations. She has been told she has some form of arrhythmia in the past but that they were watching it. No acute arrhythmias were found today in the emergency department. Patient's labs show a hemoglobin of 13, white count of 6.1 platelets of 205 glucose is 143 normal renal function and electrolytes are appropriate with a potassium of 4.4, has a 2.3 oz, glucose of 140, INR is 1, LFTs are negative, patient has troponin less than 0.012 and repeat troponin is less than 0 2. Chest x-ray shows no acute change. EKGs do show left bundle-branch block. No dynamic changes. Patient is felt appropriate for discharge home and follow up with primary care she has already been seeing them about her palpitation symptoms. Discussed probable monitor ZIO patch and echo would be appropriate for follow-up. Discussed return precautions all questions answered. Discharge Plan Departure Patient Disposition: Home Clinical Impression: Palpitations, Left bundle branch block (LBBB) Instructions: DI for Palpitations Activity Restrictions/Additional Instructions: Follow-up with your physician for recheck, please call to set up an appointment. Your EKGs today did show that you have a left bundle-branch block, I do not have any priors for comparison it is unclear how long you have had this. Share this information with your physician. You did describe having palpitations or your heart bounding out of your chest, talk with your physician they may order a Holter monitor or ZIO patch and/or possibly an echo or other workup. Please return if you have recurrent or persistent symptoms, passing out, new chest pain or shortness of breath, persistently fast or irregular heart rate, increased swelling of your extremities, persistent nausea or vomiting or other new or concerning changes Prescriptions: No Action acetaminophen [Tylenol 8 Hour] 650 mg tablet extended release 650 mg PO Q12H atorvastatin 10 mg tablet 10 mg PO DAILY Qty: 90 3RF levothyroxine 75 mcg tablet 75 mcg PO DAILY Qty: 90 3RF gabapentin 100 mg capsule 300 mg PO BEDTIME Qty: 270 1RF trazodone 50 mg tablet 100 mg PO BEDTIME PRN (Reason: sleep) Qty: 180 1RF estradiol-norethindrone acet 0.5-0.1 mg tablet 1 tab PO DAILY Qty: 84 1RF Referrals: Salazar Cha MD [Primary Care Provider] - Stand Alone Forms: Patient Portal/API
[2024-03-08 16:20] VITALS: BP 142/82; PULSE 98; RESP 18; O2SAT 96
== END 2024-03-08 16:20 | disposition home or self-care (01) ==
PROVIDERS: Emergency Medicine; Emergency Provider Emergency Medicine; PCP Family Medicine
DX: R00.2 Palpitations (principal); I44.7 Left bundle-branch block, unspecified; M54.16 Radiculopathy, lumbar region; I49.9 Cardiac arrhythmia, unspecified
CPT/HCPCS: 36415; 64483; 71045; 80053; 82550; 83690; 83735; 84484; 85025; 85610; 85730; 93005; 99152; 99283; 99284; J1100; J2250

== ENCOUNTER → 2024-03-13 09:53 | Outpatient (CLI) | payer MEDICARE, OTHER, SELFPAY ==
--- NOTE | 2024-03-13 09:55 | DI.RAD.S_ITS ---
PROCEDURE: XR DEXA AXIAL SKELETON INDICATIONS: Osteopenia COMPARISON: [facility], KASSANDRA, XR DEXA AXIAL SKELETON, 01/20/2022, 12:58. FINDINGS: Lumbar Spine: Bone mineral density 1.041 g/cm2, T score -0.1. Left Hip: Bone mineral density 0.851 g/cm2, T score -0.7. Left Femoral Neck: Bone mineral density 0.702 g/cm2, T score -1.3. Right Hip: Bone mineral density 0.911 g/cm2, T score -0.3. Right Femoral Neck: Bone mineral density 0.829 g/cm2, T score -0.2. Fracture Risk Calculation (when applicable): 10-year fracture risk of a major osteoporotic fracture 14% and of a hip fracture 3.4%. (T score greater or equal to -1.0 to: NORMAL) (T score from -1.1 to -2.4: OSTEOPENIA) (T score less than or equal to -2.5: OSTEOPOROSIS) IMPRESSION: Osteopenia. Follow-up guidelines as follows: Osteoporosis: Consider a repeat DEXA and Vertebral Fracture Assessment (VFA) exam in 2 years or sooner if medically necessary, to reassess this patient's status. Osteopenia: Consider a repeat DEXA in 2-3 years to reassess this patient's status, or if there is a new clinical indication. Normal: Consider a repeat DEXA in 5 years or sooner, or if there is a new clinical indication. All treatment decisions require clinical judgment and consideration of individual patient factors, including patient preferences, comorbidities, previous drug use, risk factors not captured in the FRAX model (e.g., frailty, falls, vitamin D deficiency, increased bone turnover, interval significant decline in bone density ) and possible under- or over-estimation of fracture risk by FRAX. In addition, the NOF Guide recommends that FDA-approved medical therapies be considered in postmenopausal women and men age >= 50 years with a: * Hip or vertebral (clinical or morphometric) fracture * T-score of <=-2.5 at the spine or hip * Ten-year fracture probability by FRAX of >= 3% for hip fracture or >=20% for major osteoporotic fracture. People with diagnosed cases of osteoporosis or at high risk for fracture should have regular bone mineral density tests. For patients eligible for Medicare, routine testing is allowed once every 2 years. The testing frequency can be increased to one year for patients who have rapidly progressing disease, those who are receiving or discontinuing medical therapy to restore bone mass, or have additional risk factors. Dictated by: Pee Mitchell M.D. on 03/13/2024 at 17:26 Approved by: Pee Mitchell M.D. on 03/13/2024 at 17:28
== END ==
PROVIDERS: PCP Family Medicine; Referring Provider Family Medicine; Visit Provider Family Medicine
DX: M85.89 Other specified disorders of bone density and structure, multiple sites (principal)
CPT/HCPCS: 77080

== ENCOUNTER → 2024-03-20 13:38 | Outpatient (CLI) | payer MEDICARE, OTHER, SELFPAY | PROVIDERS: PCP Family Medicine; Referring Provider Family Medicine; Visit Provider Family Medicine | DX: R00.2 Palpitations (principal) | CPT/HCPCS: 93246 ==

== ENCOUNTER → 2024-04-13 07:00 | Outpatient (CLI) | payer MEDICARE, OTHER, SELFPAY ==
--- NOTE | 2024-04-13 07:01 | DI.ECHO.S_ITS ---
[facility]+ [facility] : : [id number] : : [place] : : [id number] : : Phone: [phone] Echocardiogram Report + + :Name: Chente ARRIAGA Study Date: 04/13/2024 Height: 61 in : :Hospital ReadingLocation: Weight: 170 lb : : Gender: Female BSA: 1.8 m2 : :: 1950 Age: 73 yrs BP: 108/74 mmHg: :Reason For Study: LBBB, CHEST PRESSURE : :Ordering Physician: ELLA, : :QUIN Performed By: Josseline Bustamante : :Referring: QUIN JARAMILLO : + + Interpretation Summary 1) Normal left ventricular thickness, size, and systolic function (EF 55-60%). 2) Septal motion is consistent with conduction abnormality. 3) Normal right ventricular size and function. 4) Very mild aortic stenosis present (mean gradient 8mmHg, valve area 1.8cm2). 5) No prior Echo available for comparison. Procedure: A two-dimensional transthoracic echocardiogram with color flow and Doppler was performed. The study quality was technically adequate. There is no prior echocardiogram noted for this patient. The patient was in sinus rhythm with heart rates between 76-87 bpm during the exam. Left Ventricle: The left ventricle is normal in size and wall thickness. The ejection fraction is estimated to be 55-60%. Septal motion is consistent with conduction abnormality. Right Ventricle: The right ventricle is normal in size and function. Atria: The left atrial size is normal. Right atrial size is normal. There is no Doppler evidence for an interatrial shunt. Mitral Valve: The mitral valve is normal in structure and function. There is trace mitral regurgitation. Aortic Valve: The aortic valve opens well. The aortic valve is trileaflet. The aortic valve is mildly calcified. Very mild aortic stenosis present (mean gradient 8mmHg, valve area 1.8cm2). No aortic regurgitation is present. Tricuspid Valve: The tricuspid valve is normal in structure and function. There is trace tricuspid regurgitation. Pulmonary artery pressures cannot be estimated because of the lack of a measurable TR jet velocity. Pulmonic Valve: The pulmonic valve is not well visualized. There is no pulmonic valvular regurgitation. Great Vessels: The aortic root is normal size. The dimensions of the ascending aorta are normal. The IVC is of normal diameter and collapses greater than 50% with a sniff. This suggests a low right atrial pressure of 3 mm Hg. Pericardium/ Pleura There is no pericardial effusion. There is no pleural effusion. MMode/2D Measurements & Calculations LVIDd: 5.0 cm LVOT diam: 2.0 cm LVIDs: 3.0 cm Ao root diam: 2.4 cm FS: 39.6 % asc Aorta Diam: 3.5 cm IVSd: 0.93 cm Ao Arch Diam (Prox Trans): 3.3 cm LVPWd: 0.84 cm LV [place]. diameter/BSA (cm/m^2): 2.8 LV sys. diameter/BSA (cm/m^2): 1.7 LA A2 area: 13.8 cm2 RA long axis: 4.3 cm LA A4 area: 12.5 cm2 RA area: 9.2 cm2 LA length (vol): 4.5 cm RA vol: 16.4 ml LA vol: 32.4 ml RA : 9.3 ml/m2 LA vol index: 18.4 ml/m2 IVC diam: 1.7 cm RVD1 (basal): 3.3 cm RVD2 (mid): 2.4 cm TAPSE: 1.8 cm Doppler Measurements & Calculations Ao V2 max: 189.6 cm/sec LVOT Max Joseph: 106.9 cm/sec Ao V2 mean: 131.4 cm/sec LV V1 max P.6 mmHg Ao max P.4 mmHg LV V1 VTI: 22.5 cm Ao mean P.8 mmHg JANE(I,D): 1.8 cm2 Ao V2 VTI: 36.8 cm JANE(V,D): 1.7 cm2 sev ratio: 0.61 JANE indexed to BSA (cm^2/m^2): 1.0 MV E max joseph: 66.6 cm/sec PA V2 max: 107.0 cm/sec MV A max joseph: 67.8 cm/sec PA V2 mean: 75.4 cm/sec MV E/A: 0.98 PA mean P.4 mmHg Med Peak E' Joseph: 5.0 cm/sec PA pr(Accel): 46.5 mmHg E/E' med: 13.3 Lat Peak E' Joseph: 7.4 cm/sec E/E' lat: 9.0 E/e' average: 11.2 MV dec time: 0.26 sec SV(LVOT): 67.6 ml Reading Physician:12:51 PM
== END ==
LOC: ECHO 07:00
PROVIDERS: PCP Family Medicine; Referring Provider Family Medicine; Visit Provider Family Medicine
DX: I35.0 Nonrheumatic aortic (valve) stenosis (principal); I44.7 Left bundle-branch block, unspecified; R00.2 Palpitations; R07.89 Other chest pain; E78.5 Hyperlipidemia, unspecified
CPT/HCPCS: 93306

== ENCOUNTER → 2025-06-25 07:08 | Outpatient (CLI) | payer MEDICARE, OTHER, SELFPAY ==
[2025-06-25 08:56] LABS: Cholesterol 188 mg/dL (140-199); HDL Cholesterol 80 mg/dL (40-60); Triglycerides 72 mg/dL (35-150)
[2025-06-25 09:28] LABS: TSH w/ Reflex to FT4 1.76 uIU/mL (0.47-4.68)
== END ==
PROVIDERS: PCP Family Medicine; Referring Provider Family Medicine; Visit Provider Family Medicine
DX: N18.31 Chronic kidney disease, stage 3a (principal); E78.5 Hyperlipidemia, unspecified; E03.9 Hypothyroidism, unspecified; M54.42 Lumbago with sciatica, left side; G89.29 Other chronic pain
CPT/HCPCS: 36415; 80061; 82043; 82570; 84443

== ENCOUNTER → 2025-08-06 07:05 | Outpatient (CLI) | payer MEDICARE, OTHER, SELFPAY ==
--- NOTE | 2025-08-06 07:09 | EKG_ITS ---
[address] [address] Test Date: 2025-08-06 Pat Name: Chente Kidd Department: [facility] Room: Gender: Female [employer]: DREW : 1950 Requested By: Order Number: [id number] Reading MD: Patrick Reyez MD Measurements Intervals [place] Rate: 59 P: 5 UT: 172 QRS: -8 QRSD: 74 T: 3 QT: 396 QTc: 392 Interpretive Statements Sinus bradycardia Nonspecific T wave abnormality Electronically Signed On 08-12-2025 9:02:28 PST by Patrick Reyez MD
[2025-08-06 07:30] LABS: Add Manual Diff / Slide Review NO; Hematocrit 42.8 % (36-46); Hemoglobin 14.3 g/dL (12.0-16.0); Lymphocytes Absolute Auto 1400 /uL (1100-4500); Mean Corpuscular HGB Conc 33.3 % (30-36); Mean Corpuscular Hemoglobin 31.7 PG (26-34); Mean Corpuscular Volume 95.2 fL (80-100); Platelet Count 227 X10^3/uL (150-400)
[2025-08-06 07:40] LABS: Hemoglobin A1C% w Est Avg Glu 5.5 % (4.0-6.0)
[2025-08-06 07:49] LABS: Albumin 4.3 g/dL (3.5-5.0); Blood Urea Nitrogen 25 mg/dL (7-17); Calcium 9.2 mg/dL (8.4-10.2); Carbon Dioxide 25 mmol/L (22-32); Chloride 107 mmol/L (98-107); Estimated Glomerular Filt Rate > 60 mL/min (>60); Glucose 100 mg/dL (70-99); HEMOLYSIS 18 (0-50); Potassium 4.4 mmol/L (3.4-5.1); Sodium 138 mmol/L (137-145)
[2025-08-06 07:56] LABS: Prealbumin 27.2 mg/dL (17.6-36.0)
[2025-08-06 08:07] LABS: Vitamin D 25 Hydroxy (D3) 19.5 ng/mL (30.0-100.0)
== END ==
PROVIDERS: PCP Family Medicine; Referring Provider Family Medicine; Visit Provider Orthopaedic Surgery Adult Reconstructive Orthopaedic Surgery
DX: Z01.818 Encounter for other preprocedural examination (principal)
CPT/HCPCS: 36415; 80048; 82040; 82306; 83036; 84134; 85025; 93005; 93010

== ENCOUNTER 2025-08-27 11:53 | Day surgery (SDC) | payer MEDICARE, OTHER, SELFPAY ==
[2025-08-16 12:31] VITALS: BMI 30.1
[2025-08-27] VITALS (10 sets, daily range): BP systolic 91–123; BP diastolic 51–81; PULSE 61–89; RESP 13–17; TEMP 36.4–36.9; O2SAT 90–97; BMI 30.9
--- NOTE | 2025-08-27 06:00 | DI.RAD.S_ITS ---
PROCEDURE: XR KNEE LT 1TO2V INDICATIONS: Post operative imaging TECHNIQUE: 2 view(s) of the knee acquired. COMPARISON: [facility], CR, XR KNEE LT 3V, 06/03/2025, 10:04. [facility], CR, XR KNEE LT 1TO2V, 12/22/2022, 16:20. FINDINGS: Bones: Patient is status post knee joint arthroplasty. Hardware components are in expected positions. Visualized bony structures are intact. Soft tissues: Overlying postoperative changes are noted. IMPRESSION: Expected post-operative appearance of a knee arthroplasty. Dictated by: Seth Payne M.D. on 08/27/2025 at 16:11 Approved by: Seth Payne M.D. on 08/27/2025 at 16:11
[2025-08-27] MEDS: MELOXICAM 7.5 MG TABLET PO (12:41)
[2025-08-27] MEDS: ACETAMINOPHEN 325 MG TABLET 975 MG PO (12:41)
[2025-08-27] MEDS: LACTATED RINGERS 1,000 ML 42 ML IV ×2 (12:41→14:00)
--- NOTE | 2025-08-27 12:54 | PM.PREOP ---
Pre-operative Note Interval Note History & Physical reviewed/Exam performed by Physician: Yes Changes to H&P: No
[2025-08-27] MEDS: TRANEXAMIC ACID 1,000 MG VIAL 1000 MG INJ ×2 (13:30→14:43)
--- NOTE | 2025-08-27 13:46 | SUR.OPER ---
Supine on padded OR bed. Pillow under head, arms secured on padded armboards <90 degree abduction. Safety belt across torso. Non-operative leg secured with tape over blanket over lower leg. Operative leg secured in DeMayo/Eran/Nathe positioner. Foam padded brace at thigh of operative leg. PA in room at time of positioning, all pressure points padded and protected.
[2025-08-27] MEDS: KETOROLAC 30 MG/ML VIAL 15 MG INJ (13:50)
--- NOTE | 2025-08-27 15:19 | P.OP_ITS ---
Operative Date/Time/Diagnoses Date of procedure: 08/27/25 Time of procedure: 14:00 Pre-op diagnosis: Left knee osteoarthritis Post-op diagnosis: same Procedure & Clinicians Procedure: Left total knee arthroplasty Same procedure(s) as scheduled: Yes Surgeon: Kip Brown Assisted?: Yes Soap Inspector: Fatmata Hickey Anesthesia Type: Spinal, Sedation, Peripheral nerve block and Local Operative Notes Findings: Severe arthritis Closure Type: primary Specimen(s): none sent Applied: implant(s) Estimated Blood Loss (mL): 50 Blood products transfused: none Tourniquet time (min): 60 Procedure in detail: Left Gap-Balanced Anila Persona Medial-Congruent Primary Total Knee Arthroplasty Implants: * Size 7 Cruciate Retaining Femoral Component * Size D Tibial Component * Size 11 Medial Congruent Polyethylene Insert * Unresurfaced Patella Procedure Summary: This 75-year-old female patient had varus arthritis which was balanced for the extension gap through a varus tibial cut. The flexion gap was balanced using a tensioner device which balanced at 1 degree of external rotation. Cemented fixation was utilized. At the conclusion of the case she could not fully extend with a 12 mm insert so an 11 mm insert was used. Procedure in Detail: This patient was seen preoperatively and evaluated for knee pain which was refractory to numerous nonoperative treatment modalities. Their pain correlated with radiographic changes demonstrating significant degeneration in the knee joint. The risks and benefits of continued nonoperative management versus operative management were discussed at length and all of the patient?s questions were answered. Additional educational materials providing further details beyond our discussion in clinic were provided via a publicly available patient education video which included the incidence of medical complications associated with total knee arthroplasty, reasons for revision following total knee arthroplasty, and patient satisfaction rates following total knee arthroplasty. With this understanding of the risks inherent to the procedure, the patient elected to move forward with operative management. Following preoperative optimization, the patient was scheduled for surgery. The patient was met in the preoperative holding area the day of the procedure and all questions were answered. The patient?s nares were swabbed in order to decolonize them from MRSA. Informed consent was signed and the left limb was marked with indelible ink.? The patient was brought back to the operating room where anesthesia was induced. The patient was transferred to the operating table and all bony prominences were padded. The operative site was prepped and draped in the usual sterile fashion. A second prep stick was utilized following drape placement. The incision was marked corresponding to the medial aspect of the tibial tubercle and the patella. Ioban was wrapped circumferentially around the knee. Prior to incision, tranexamic acid and cefazolin were administered. Templating images were displayed. A timeout procedure was performed verifying the patient?s identity, medical comorbidities, allergies, relevant medications, anesthesia type and the surgical plan. All present were in agreement. The assistance of a physician assistant guest services manager was required for positioning, room setup, soft tissue retraction and wound closure. Without this assistance, the procedure would have been significantly more challenging and time consuming.?? The tourniquet was inflated prior to incision. I made an anterior incision over the knee, dissected through the subcutaneous tissues and identified the lateral border of the VMO. Medial and lateral soft tissue flaps were developed. A mid- vastus arthrotomy was performed ensuring that adequate capsular tissue would remain for closure at the conclusion of the procedure. The knee was brought into extension and the medial soft tissues were released off the joint line of the tibia. Tissue overlying the distal anterior femur was released to allow for later assessment for anterior notching but left in place. A portion of the retropatellar fat pad was excised while protecting the patellar tendon. The patella was everted. The patella was not resurfaced. Osteophytes were excised and a lateral facetectomy was performed. The patella was released from its everted position.?? I flexed the knee to 90 degrees and placed retractors to allow access to the notch. An opening reamer was used to gain access to the femoral canal and an intramedullary seema was introduced into the canal. Diaphyseal fit was obtained in order to plan a distal femoral resection at 5 degrees relative to the anatomic axis. A +1 resection was planned and assessed using an gi wing. I then made the cut using a sagittal saw. This provided additional access to the femoral notch. The ACL and PCL were excised. Retractors were placed on the lateral and medial tibia. I hyperflexed the knee while externally rotating it to sublux the tibia anteriorly. I placed a Amando retractor posteriorly and used this to provide additional anterior subluxation. The remainder of the PCL root was released. An extramedullary guide was positioned for a resection in slight varus. A +4 resection off the medial tibia was planned and the tibial cutting jig was pinned in place. I evaluated the depth, varus-valgus alignment and slope of the planned tibial resection prior to making the cut. I cut the tibia with a sagittal saw while using retractors to protect the MCL, patellar tendon, and posterolateral structures.? The knee was repositioned in extension and the Fuzion soft tissue balancing gauge was introduced. This demonstrated that there was equal tension in the medial and lateral compartments of the knee with the knee in full extension and no additional soft tissue releases were necessary. When 50 pounds of force was applied to the Fuzion device, the extension gap opened to 10 mm. I moved the knee into 90 degrees of flexion, and the Fuzion device was recalibrated by removing a 9 mm karolina to allow assessment of the flexion gap. The Fuzion block was placed perpendicular to the resected surface of the tibia and the resected surface of the distal femur. Fifty pounds of traction was applied to match the tension of the extension gap. This externally rotated the femur to 1 degrees. Pins were placed in the 10 mm holes. Appropriate sizing was determined and a 4-in-1 block was placed. This was double checked using the Fuzion device to ensure that it would open to an equal distance as the extension gap when the same amount of force was applied. The Fuzion block was also used to assess flexion gap symmetry. An gi wing was used to ensure there would be no anterior notching. Retractors were placed to protect the soft tissues during resection. Captured cuts were performed with a sagittal saw for the anterior and posterior femur as well as the corresponding chamfers.?A laminar president [place] and retractors were used to expose the posterior knee and the menisci and posterior osteophytes were removed. Trial components were placed and the construct was assessed. Range of motion was assessed by ensuring the knee could achieve full extension and assessing maximum passive knee flexion by elevating the femur and allowing the heel to passively fall towards the buttock. Gap symmetry was assessed by stressing the medial and lateral compartments in both extension and flexion. Laxity was assessed in both extension and flexion and the polyethylene trial was adjusted with shims as necessary. Patellar tracking was assessed with knee flexion. Once satisfied with the construct, I moved forward with implant insertion. Lug holes were drilled in the femur and the tibia was prepped ensuring appropriate sizing and rotation relative to the tibial tubercle.?? The bony ends were irrigated and cement was prepared. Portions of the anterior chamfer cut were utilized as a cement restrictor in the femur. Cement was placed on the entirety of the undersurface of both the tibial and femoral components. Cement was placed onto the dry tibia and pressurized into the cancellous bone. I impacted the tibial component into place. Cement was removed. The tibia was reduced underneath the femur and placed cement onto the dry surface of the resected femur. I placed the femoral component as well as the intended polyethyl alessia trial. Cement was removed from around the femur. I brought the knee into extension and manually pressurized the construct by pushing on the heel while the cement dried. The knee was bathed in a dilute mixture of betadine and peroxide. A mixture of Ropivacaine, Epinephrine and Toradol was infiltrated throughout the soft tissues into structures including the VMO, patellar tendon, quadriceps tendon, MCL and femoral periosteum. The knee was copiously irrigated with pulse lavage. Once cement had been allowed to dry the knee was again trialed. Range of motion was assessed by ensuring the knee could achieve full extension and assessing maximum passive knee flexion by elevating the femur and allowing the heel to passively fall towards the buttock. Gap symmetry was assessed by stressing the medial and lateral compartments in both extension and flexion. Laxity was assessed in both extension and flexion and the polyethylene trial was adjusted with shims as necessary. Patellar tracking was assessed with knee flexion. The tourniquet was let down and the polyethylene trial was removed. I inspected the knee inspected for excess cement and any residual bleeding. Once hemostasis was achieved I inserted the final polyethylene and ensured appropriate engagement of the dovetail locking mechanism.?? The arthrotomy was closed with non-absorbable interrupted suture ensuring that this extended to the top of the arthrotomy. This was backed up with running barbed suture throughout the arthrotomy. The skin was closed with 2-0 and 3-0 sutures. Surgical glue was applied and a soft dressing was placed.?The sponge, instrument and needle counts were reported as being correct at the end of the case. The patient was transferred from the operating table back to a stretcher. The patient emerged from anesthesia without difficulty and was taken to the PACU in a stable condition.? Plan for aftercare: * Weightbearing as tolerated * Aspirin 81 twice per day for DVT prophylaxis * Multimodal pain regimen with no IV opioids ordered * Anticipate discharge home tomorrow * Follow up at [facility] in 2 weeks for wound check Complications: none Post-operative Condition: stable Disposition: observation
[2025-08-27] MEDS: ACETAMINOPHEN 325 MG TABLET 650 MG PO ×2 (17:21→23:00)
[2025-08-27] MEDS: DOCUSATE 100 MG CAPSULE PO (20:31)
[2025-08-27] MEDS: METOPROLOL ER 25 MG TABLET PO (20:31)
[2025-08-28 05:29] LABS: Blood Urea Nitrogen 22 mg/dL (7-17); Calcium 9.2 mg/dL (8.4-10.2); Carbon Dioxide 25 mmol/L (22-32); Chloride 108 mmol/L (98-107); Estimated Glomerular Filt Rate > 60 mL/min (>60); Glucose 140 mg/dL (70-99); HEMOLYSIS < 15 (0-50); Potassium 4.5 mmol/L (3.4-5.1); Sodium 138 mmol/L (137-145)
--- NOTE | 2025-08-28 07:01 | PM.DS.IH.1 ---
History of Present Illness History of Present Illness Date Patient Seen: 08/28/25 Chief complaint: Left TKA Narrative: Attending: Dr. Kip Brown Orthopedic Procedures: ?Left Total Knee Arthroplasty 75 year old female with a past medical history of stage 3 chronic kidney disease, mild aortic stenosis and left bundle-branch block presented to [facility] on 08/27/2025 for planned left total knee arthroplasty by Dr. Brown. This elective procedure was indicated by chronic left knee arthritis that failed to improve sufficiently with conservative treatment. On the date of surgery there were no changes to the patient?s medical history, medications or allergies. Consent had been obtained and the patient agreed to proceed with planned surgery. Discharge Providers Provider Discharge Date: 08/28/25 Primary care physician: Salazar Cha MD Consults: 08/27/25 16:28 Consult to Physical Therapy Evaluate & Treat Comment: Physician Instructions: evaluate and treat Discharge provider: NACHO Strauss Dr Summary Hospital Course Hospital Course: On 08/27/2025 the patient was brought to the operating room for planned left total knee arthroplasty by Dr Brown. There were no known intraoperative complications. The patient was transferred to the postoperative recovery area and monitored appropriately. Later the patient was transferred to the acute care unit [facility] for monitoring overnight and physical therapy. There were no acute events overnight. She was monitored on telemetry overnight given her cardiac history. There were no acute events on telemetry. On postoperative day one, the patient's vital signs were stable, and they were making urine spontaneously. The patient was awaiting physical therapy evaluation during orthopedic rounds but had ambulated with a walker around the room and to the bathroom. Pain was well-controlled on oral analgesics including acetaminophen and tramadol once. She did not take any oxycodone. NSAIDs were avoided given chronic kidney disease. The patient agreed with preoperative plan to discharge home on postoperative day one. They have no acute concerns or questions. ROS today: no chest pain, dyspnea, fever, chills, nausea or emesis GFR > 60 on 08/28/25 Cr 0.97 on 08/28/25 Glucose 140 on 08/28/25 Exam Vital Signs (past 8 hours): Oxygen Delivery Method Nasal Cannula Oxygen Flow Rate 0 Narrative Exam Narrative: Well developed, well-nourished 75 year old female, resting comfortably, semi recumbent in bed Normal respiratory effort on room air Dressing is clean, dry and intact to the left knee without drainage. No hematoma. Webril and hossein wraps in place to the left knee. Flexion and extension of the first hallux, ankle and knee are intact Calves are soft and non-tender to operative extremity, SCDs in place Palpable dorsalis pedis pulse. Sensation grossly intact to light touch about the left lower extremity Objective Labs 08/28/25 05:03 Labs: Laboratory Results - last 24 hr 08/28/25 05:03 Sodium 138 Potassium 4.5 Chloride 108 H Carbon Dioxide 25 BUN 22 H Creatinine 0.97 Estimated GFR > 60 BUN/Creatinine Ratio 22.7 H Glucose 140 H Calcium 9.2 PFSH Medical History (Updated 08/16/25 @ 12:31 by Medina Lopez RN) CAD (coronary artery disease) Left bundle branch block (LBBB) Nonrheumatic aortic (valve) stenosis Iliotibial band syndrome Family history of coronary artery disease Lumbar radiculopathy Greater trochanteric bursitis of left hip Neurogenic claudication Lumbar spondylosis Low back pain On hormone replacement therapy Insomnia Bilateral knee pain Neck pain Lumbar radiculopathy, chronic Spondylosis Dyslipidemia CKD (chronic kidney disease) stage 3, GFR 30-59 ml/min UTI (urinary tract infection) Wears glasses Rosacea Eczema (~2019) Cardiac arrhythmia Surgical History (Updated 08/16/25 @ 13:20 by Medina Lopez RN) Anesthesia History of knee surgery History of carpal tunnel surgery History of cataract removal with insertion of prosthetic lens (~2019) Family History Father History of heart disease Stroke Mother Breast cancer Diabetes mellitus History of heart disease Stroke Brother History of heart disease Stroke Grandmother History of heart disease Family/Other Cerebral hemorrhage Family/Other Cancer Family/Other History of diabetes as a child Family/Other Cancer Family/Other History of heart disease Diabetes mellitus Family/Other History of heart disease Diabetes mellitus Family/Other History of heart disease Cancer Family/Other History of heart disease Social History Smoking Status: Never smoker alcohol intake: current Discharge Assessment & Plan Assessment and Plan Assessment: 75 year old female with a past medical history of CKD stage 3, aortic stenosis and left bundle-branch block is post operative day 1 from a left total knee arthroplasty by Dr. Brown at [facility] on 08/27/2025. The patient is recovering well with appropriate pain control on oral analgesics and stable vital signs. The patient is comfortable with planned discharge home today on post operative day one. Plan: - Weight bearing as tolerated to operative extremity with front wheeled walker - Antibiotics: 2 postoperative doses of Ancef - DVT prophylaxis: 81 mg of aspirin by mouth twice daily - Pain control: multimodal analgesia with acetaminophen, ibuprofen, tramadol and oxycodone. Minimize use of opioid medication. Ice to surgical site. - Bowel regimen: docusate sodium twice daily for constipation - Physical therapy evaluation today prior to discharge - Follow up: 2 week follow up at [facility] - Discharge medications: None. Post operative medications were prescribed prior to surgery - Disposition: home today after physical therapy All patient questions were answered, and they verbalized agreement with the above plan. Call [facility] or office professionals provider with any questions or concerns. Discharge Plan Discharge Plan Patient Disposition: Home Provider Discharge Comment: SURGICAL PROCEDURE: Left Total Knee Arthroplasty SURGEON: Dr. Brown at [facility] DATE: 08/27/25 ACTIVITY INSTRUCTIONS - You are weight bearing as tolerated to the left lower extremity with a front wheeled walker at all times. We encourage active movement of the toes and ankle every hour while awake to prevent stiffness. - Do not drive while taking narcotic medications and recovering from your surgery. - We want you to follow a quiet knee protocol for the first two weeks after surgery. This means: Do not stand for more than 20 minutes at a time Ambulate less than 1,000 steps per day Bend the knee as far as you can with your own muscles and straighten it all the way out by resting your heel on a flat surface and letting your knee hang down Avoid anyone pushing your knee to bend it or straighten it - After two weeks we will want you to get more aggressive in your work with physical therapy, but we need to let your body heal first DRESSING CARE - You have an aquacell dressing on top of your incision. This is a waterproof dressing and so you may shower with the dressing so long as the dressing remains clean and dry to the surgical site. Leave the dressing in place until your follow up in the orthopedic clinic. If the dressing becomes saturated or is disrupted call our office for further guidance. - Your dressing is covered with a soft cotton dressing and hossein wrap for compression. You may remove these dressings when you return home but should leave the waterproof dressing in place POST-OPERATIVE INSTRUCTIONS - If you notice fever, chills, night sweats, redness, excessive drainage or bleeding, a sharp increase in pain that persists after taking pain medication, pain in your calf muscles, chest pain or trouble breathing please unwrap the dressing and investigate. Then call the office with findings for further guidance. If it is after regular clinic hours, please seek care in the emergency department. - In the rare case of any severe chest pain and trouble breathing, seek immediate care, do not delay for a call to the clinic. - Use ice to the affected extremity for 15-30 minutes increments as much as possible. Use your ice machine as discussed in your pre-operative visit. - Keep extremity elevated to the level of the heart to reduce swelling. You can use ice on top of the dressing to reduce pain and swelling of the extremity. - You should consume a low sodium diet after surgery to limit swelling. You can gradually resume your normal diet if you have no nausea or vomiting - Physical therapy should begin about 7-10 days after surgery. Your first evaluation should already be scheduled. Call our office if you cannot schedule your therapy in the expected time frame. - Your follow up is already scheduled for 2 weeks after your surgery at the Orthopedic clinic. - You should have no dental procedures for 6 months following your total joint replacement. - Please refer to Dr. Brown?s educational videos on [email or web address] for a reference on your post operative care. [email or web address] - Call [facility] at [phone] with any questions or concerns. MEDICATIONS - Please refer to the ?Orthopedic Medication Instructions? sheet provided at your pre-operative visit. Written instructions are provided below as a reminder. - Take two pills of 500 mg Tylenol (acetaminophen) every 8 hours regardless of pain in a scheduled manner. Do not exceed 3000 mg of Tylenol (from ALL sources, including over the counter combination products) in a 24-hour period due to risk of liver injury. - Take one pill of 5 mg oxycodone by mouth every 4-6 hours as needed for break through pain after taking your regular Tylenol and anti-inflammatory. - Oxycodone and Tramadol are opioids, which means they are similar to morphine, heroin or fentanyl. Our goal is for you to take as little of this as possible because the side effects from it can be very severe. If you are able to get through your recovery process taking 10 pills or less, please share your story with other patients by logging onto [email or web address] and sharing what strategies you used to avoid these dangerous medications. You can also read other patients? stories on that website to get strategies that go above and beyond what we have discussed to help you manage this pain while avoiding opioids. - Take 200 mg of Colace by mouth every 12 hours for constipation. Narcotic medications such as oxycodone and tramadol as well as anesthesia may increase your risk of constipation after surgery. This is an over the counter medication. - Take 4 mg of Zofran by mouth every 8 hours as needed for uncontrolled nausea or vomiting. If you have persistent nausea and vomiting call our office or seek care in the emergency department. This prescription was sent to your pharmacy today. - Take one pill of 81 mg of aspirin two times daily 12 hours apart for 6 weeks for blood clot prevention. Take this medication regardless of pain. - Take three pills of 650 mg tranexamic acid once daily for 3 days following surgery. This is to reduce bleeding and swelling in your knee. - Take a proton pump inhibitor such as Omeprazole if you have a history of acid reflux or are noticing stomach irritation. NSAIDs and aspirin can both cause stomach irritation and that medication can help avoid stomach issues. - If you stopped taking a ?biologic? medication that you normally take for an issue such as rheumatoid arthritis or psoriasis prior to surgery, do not restart it until we have seen you back in clinic and confirmed that your wound is healed. - Resume all of your normal home medications tomorrow morning unless specified otherwise by your surgeon. Discharge orders & Medications Discharge Orders: Discharge (Order); Ordered 08/28/25 Ordered By: Fatmata Hickey Prescriptions: Continued metoprolol succinate 25 mg tablet extended release 24 hr 25 mg PO BID estradiol-norethindrone acet 0.5-0.1 mg tablet 1 tab PO DAILY Qty: 84 2RF trazodone 50 mg tablet 100 mg PO BEDTIME PRN (Reason: sleep) Qty: 180 1RF cholecalciferol (vitamin D3) 50 mcg (2,000 unit) capsule 100 mcg PO DAILY 90 Days Qty: 180 0RF Rx Instructions: take 2 capsules by mouth daily for 90 days for low vitamin d3. acetaminophen [Tylenol 8 Hour] 650 mg tablet extended release 650 mg PO DAILY atorvastatin 10 mg tablet 10 mg PO DAILY Qty: 90 3RF levothyroxine 75 mcg tablet 75 mcg PO DAILY Qty: 90 3RF ondansetron 4 mg tablet,disintegrating 4 mg PO Q8H PRN (Reason: nausea and vomiting) Qty: 14 0RF aspirin 81 mg tablet,delayed release (DR/EC) 81 mg PO BID 45 Days Qty: 90 0RF docusate sodium [Colace] 100 mg capsule 100 mg PO BID PRN (Reason: constipation) Qty: 60 0RF oxycodone 5 mg tablet 5 mg PO Q6H PRN (Reason: pain) Qty: 30 0RF Follow up/Referrals: Salazar Cha MD [Primary Care Provider, Family Practice] Visit Report/Discharge Packet Instructions: DI for Knee Replacement Stand Alone Forms: Patient Portal/API, Surgery Discharge Print Language: Wolof Discharge Data Primary Care Provider: Salazar Cha Attending Provider: Kip Brown VTE Deep Vein Thrombosis/Pulmonary Embolism Present on Admission: No IH PROFEE Charge Codes Discharge inpatient/observation: [id number]
--- NOTE | 2025-08-28 08:37 | PT.IIE ---
Current Diagnoses Unilateral primary osteoarthritis, left knee (08/27/25) Surgery Performed Operation Date: 08/27/25 13:45 Actual Procedures p Total Knee Arthroplasty(Left) - Kip Brown MD Surgical History (Last Updated 08/16/25 @ 13:20 by Medina Lopez, RN) Anesthesia History of carpal tunnel surgery History of cataract removal with insertion of prosthetic lens (~2019) History of knee surgery Medical History (Last Updated 08/16/25 @ 12:31 by Medina Lopez, RN) Bilateral knee pain CAD (coronary artery disease) Cardiac arrhythmia CKD (chronic kidney disease) stage 3, GFR 30-59 ml/min Dyslipidemia Eczema (~2019) Family history of coronary artery disease Greater trochanteric bursitis of left hip Iliotibial band syndrome Insomnia Left bundle branch block (LBBB) Low back pain Lumbar radiculopathy Lumbar radiculopathy, chronic Lumbar spondylosis Neck pain Neurogenic claudication Nonrheumatic aortic (valve) stenosis On hormone replacement therapy Rosacea Spondylosis UTI (urinary tract infection) Wears glasses Physical Therapy Inpatient Evaluation/Re-Eval M1 PT IP Prior Functional Status Start: 08/28/25 07:41 Freq: NEEDED Status: Active Protocol: Document 08/28/25 07:41 [facility] (Rec: 08/28/25 08:36 [facility] [id number]) Medical Review Prior Functional Status Medical History Yes Reviewed Diet/Fluid Regular Consistency Communication WNL Mobility and Gait indep w/o AD most of the time, outside used walking stick Activities of Daily indep ADLS and IADLs and drives Living and IADL's Social History Household Members none Living Arrangements Apartment/Condo Number of Floors ( One Floor Floors) Number of Stairs To flight of stairs to enter Enter/Railing? Home Environment Standard Height Toilet,Walk in Shower,Tub/Shower Home Equipment Front Wheel Walker,Grab Bars In Shower Employment Status Retired Additional Social has walking stick History Comment plans to stay with son for week, 2 level house but can stay on first floor, ramp entry, son and available most of the time this week. tub shower w/1 grab bar, normal height toilets M2 PT-IP Current Condition Start: 08/28/25 07:41 Freq: NEEDED Status: Active Protocol: Document 08/28/25 07:41 [facility] (Rec: 08/28/25 08:36 [facility] [id number]) Physical Therapy Current Condition Current Condition Evaluation Date 08/28/25 Treatment Diagnosis L TKA M3 PT-IP Subjective Start: 08/28/25 07:41 Freq: NEEDED Status: Active Protocol: Document 08/28/25 07:41 [facility] (Rec: 08/28/25 08:36 [facility] [id number]) Subjective Physical Therapy Visit Type Type Initial Evaluation Visit Start Time 07:45 Visit Stop Time 08:23 Number of LEISURE STUDIES PROFESSOR Visits 0 M4 PT-IP Mobility and Gait Start: 08/28/25 07:41 Freq: NEEDED Status: Active Protocol: Document 08/28/25 07:41 [facility] (Rec: 08/28/25 08:36 [facility] [id number]) PT-Bed Mobility Assessment Supine to Sit Supine to Sit Independent Scooting Scooting to Edge of Independent Bed PT-Transfer Assessment Sit to and From Stand Sit to and from Standby Assistance Stand Equipment Transfer Assistive Gait Belt,Front Wheeled Walker Device Orthotic/Prosthetic No Devices or Brace: Comments Mobility Comments BP 114/74 supine, seated 149/93; indep supine to sit and scoot to EOB, min cues for leg placement SBA sit to stand to FWW then amb 80ft to stairs w/FWW SBA w/cues for step to as needed and to work towards typical gait. UP/down stairs w/cues for sequence w/B rails SBA thne amb 80ft w/FWW to room and cues to sit in chair. left with call light in reach. Gait Assessment Gait Gait Assistance Standby Assistance Required: Distance (Feet) 160 Able to Maintain Yes Weight Bearing Status During Gait Assistive Devices Assistive Device Gait Belt,Front Wheeled Walker Gait Deviations General Gait Pattern Antalgic Factors Limiting Gait Function Factors Limiting Decreased Activity Tolerance,Decreased Strength,Limited Gait Function Range of Motion,Pain Stair Climbing Assessment Evaluation Level of Assist On Standby Assistance Stairs Devices Stair Climbing Left Railing,Right Railing Assistive Devices Technique/Endurance Stair Climbing Ascend and Descend Direction Stair Climbing Step to Step Technique Number of Steps 3 Climbed Query Text: Stair Climbing Set # 1 Repetitions (reps) PT-Balance Assessment Sitting Balance and Reactions Static Sitting Normal Balance Ability Dynamic Sitting Normal Balance Ability Standing Balance and Reactions Static Standing Good Balance Ability Dynamic Standing Good Balance Ability Device Used FWW M5 PT-IP Objective Assessments Start: 08/28/25 07:41 Freq: NEEDED Status: Active Protocol: Document 08/28/25 07:41 [facility] (Rec: 08/28/25 08:36 [facility] [id number]) Orientation Orientation/Cognition Level of Alertness Alert Language Function No Deficits Noted Ability Safety Awareness Understands Safety Issues Memory Description No Deficits Noted Gross Range of Motion Upper Extremity ROM Assessment Within Functional Limits Lower Extremity ROM Assessment Left Impaired Strength Upper Extremity Strength Assessment Within Functional Limits Lower Extremity Strength Assessment Left Impaired Knee 3/5 M6 PT-IP Treatment Start: 08/28/25 07:41 Freq: NEEDED Status: Active Protocol: Document 08/28/25 07:41 [facility] (Rec: 08/28/25 08:36 [facility] [id number]) Physical Therapy Treatment Exercises Exercises Ankle Pumps,Quad Sets Education Education Provided Precautions,Weight Bearing Status,Post-Op Packet,Safety Other Treatments Other Treatment review of all exercises in packet Performed M7 PT-IP Assessment and Plan Start: 08/28/25 07:41 Freq: NEEDED Status: Active Protocol: Document 08/28/25 07:41 [facility] (Rec: 08/28/25 08:36 [facility] [id number]) PT Summary Assessment and Plan Potential Rehabilitation Good Potential Status of Condition Evolving at Evaluation Summary Impairments Pain,ROM,Strength,Balance,Transfers,Gait,Activity Tolerance Assessment Summary pt presents day 1 s/p L TKA w/good pain control and good family assist. She did well with all mobility today and understands safety issues. At this time, pt would benefit from DC to home when medically stable w/ OP PT Frequency of Treatment Frequency Of Discharge Treatment Weight Bearing Status Weight Bearing Weight Bear as Tolerated Status Recommendations To Nursing Amount of Assist Standby Assistance Needed Discharge Recommendations PT Discharge Home with Assistance,Outpatient PT Recommendations Other Discharge encouraged to get shower chair and cane Recommendations Transportation Needs Private Vehicle at Discharge - PT assist 1
--- NOTE | 2025-08-28 08:42 | CM.DANOTE ---
DCP Assessment Note: Pt is a 75yo female, resident [facility], is admitted s/p L TKA. Pt lives in an apartment alone. Pt's Primary Care Provider is Dr. Salazar Cha and insurance is Medicare and [employer]. Reviewed chart and discussed with multidisciplinary team pt's medical status and initial discharge needs. Per Provider, pt cleared to discharge home with family. Pre-Op Note states there was a plan for patient to discharge home in the morning with son (Kel, ph# [phone]) or daughter in law to transport. No dc needs identified. Plan: Anticipating discharge home with son or daughter in law to transport on 08/28 or when medically cleared. CM team will follow closely for coordination of discharge plans. STANTON Vidales Discharge Planning/Care Management CM Discharge Assessment Start: 08/27/25 12:54 Freq: Status: Active Protocol: Document 08/28/25 08:40 [facility] (Rec: 08/28/25 08:42 [facility] Desktop) Discharge Planning Assessment Assigned Discharge GANESH Sosa Shirring Machine Operator Provider Dr. Salazar Cha Insurance Medicare DPOA/Assigned Casie Rutledge, Daughter Designee Name Contact Information [phone] Advance Directives? Yes Advance Directives No on File History Provided By Patient Has Patient been No admitted in last 30 days? Prior Living Apartment/Condo Arrangements Comment will be going home with daughter in law after hospitalization Household Members none Independent with ADL Yes 's Is patient alert and Yes oriented? DME Already Rented / FWW / Walker Owned Discharge Plan Home Transportation Son or daughter in law Arrangement Review Status In Process Please Provide Date 08/28/25 Initial DC Assessment Was Performed Next Review Type Continued Stay Review
[2025-08-28] MEDS: ACETAMINOPHEN 325 MG TABLET 650 MG PO (09:03)
[2025-08-28 09:05] VITALS: BP 128/81; PULSE 77
[2025-08-28] MEDS: METOPROLOL ER 25 MG TABLET PO (09:05)
[2025-08-28] MEDS: LEVOTHYROXINE 75 MCG TABLET PO (09:05)
[2025-08-28] MEDS: TRANEXAMIC ACID 650 MG TABLET 1950 MG PO (09:05)
--- NOTE | 2025-08-28 11:33 | PC.NURSE ---
Pt discharged home at 1110, escorted off floor in wheelchair accompanied by son and hospital staff. IV removed, tele d/c'd, discharge teaching completed including new medications, wound care and follow up appointments. Patient left the floor with all belongings.
== END 2025-08-28 11:34 | disposition home or self-care (01) ==
LOC: OR 11:57 → AC 12:50
PROVIDERS: Physician Assistant Surgical; Family Provider Family Medicine; PCP Family Medicine; Referring Provider Orthopaedic Surgery Adult Reconstructive Orthopaedic Surgery; Visit Provider Orthopaedic Surgery Adult Reconstructive Orthopaedic Surgery
PROC: 0SRD0JZ Replacement of Left Knee Joint with Synthetic Substitute, Open Approach (ICD-10-PCS; CPT 27447; principal; 2025-08-27 13:45)
DX: M17.12 Unilateral primary osteoarthritis, left knee (principal); N18.30 Chronic kidney disease, stage 3 unspecified; I44.7 Left bundle-branch block, unspecified; I35.0 Nonrheumatic aortic (valve) stenosis; I25.10 Atherosclerotic heart disease of native coronary artery without angina pectoris
CPT/HCPCS: 27447; 36415; 73560; 80048; 97116; 97162; 97530; C1776; C1713; J0689; J1100; J1885; J2405; J2704; J3010; J7120